=== PATIENT | female | born 1970 | race Caucasian/White ===

== ENCOUNTER 2023-12-01 11:15 | Outpatient (RCR) | payer OTHER, SELFPAY ==
--- NOTE | 2023-10-23 16:32 | OPREHPOC ---
Outpatient Therapy Plan of Care This is a Multidisciplinary Plan of Care that may contain components documented by all disciplines (PT, OT, and ST.) PT Problem 1 PT Problem #1 Knowledge Deficit PT Goal 1 Goal [place] with HEP PT Goal 2 Goal Demonstrate terminal stance of L knee for terminal stance of gait Target Visit 10 PT Problem 2 PT Problem #2 Impaired Range of Motion PT Goal 1 Goal Improve left knee flexion to 125 degrees + Target Visit 10 PT Goal 2 Goal Patent will report no pain greater than 1/10 with sit to laundry machine tender last 2 weeks Target Visit 10 PT Problem 3 PT Problem #3 Impaired Gait PT Goal 1 Goal Patient will ambulate with even stride length bilaterally Target Visit 10 PT Goal 2 Goal Demonstrate ability to perform 10# floor lift without increased knee pain Target Visit 10
--- NOTE | 2023-10-23 16:32 | PTOPEVAL1 ---
Assessment and note entered by Stephen Woods, PT Evaluation Information Assessment Status Evaluation Diagnosis Acute pain in right knee, Medial meniscus tear, Osteoarthritis of Right knee Onset August 2022 Subjective Information Reports that she has had severe knee pain for about a year at this point. She reports that she has had injections and therapy in the past when she lived in [place]. States that she responded well to Aquatic therapy. She has a lot of trouble with deep squatting at this time. Reported Pain Level Pain Score 3: Self Report Assessment PT Clinical Summary Patient presents with loss in left knee functional motion, gait deviation, and hip weakness. She has had positive response to aquatic therapy in the past and we will move to emphasize continued knee mobility and strength moving forward for improved gait cycle and ADL performance. Plan of Care Interventions Aquatic Therapy,Electrical Stimulation,Gait Training,Hot Pack/Cold Pack,Manual Therapy,Neuro Re-education,Therapeutic Activities,Therapeutic Exercise PT Services Indicated Yes Treatment Frequency and 2x/week for 10 visits Duration These treatments will address the objective and functional deficits as defined above. The patient will be advanced safely and appropriately in order for the patient to progress towards his/her prior level of function. Additional exercises will be introduced and as well as a comprehensive home exercise program upon discharge, if needed, ?to ensure carryover of functional gains achieved in the clinic. This treatment plan has been reviewed and agreement upon by the patient.
--- NOTE | 2023-11-29 11:30 | PCPTNOTE ---
Pt canceled 11am appt at 11am and gave no reason.
--- NOTE | 2024-01-01 10:33 | PCPTNOTE ---
pt did not show for today's reevaluation appt, called and left voice message.
--- NOTE | 2024-01-19 09:07 | PCPTNOTE ---
This treatment is being continued on visit number [id number]. Please see documentation on both accounts to view progress. Completed interventions, outcomes, and problems have been marked as Inactive to facilitate the copying of the Care plan routine for recurring accounts.
== END 2024-01-18 10:41 | disposition home or self-care (01) ==
LOC: ANHPT 11:15
PROVIDERS: PCP Family Medicine Sports Medicine; Visit Provider Family Medicine Sports Medicine
DX: M25.561 Pain in right knee (principal); S83.241D Other tear of medial meniscus, current injury, right knee, subsequent encounter; M87.9 Osteonecrosis, unspecified; M17.11 Unilateral primary osteoarthritis, right knee
CPT/HCPCS: 97110; 97113; 97140; 97161; 97530

== ENCOUNTER 2024-01-29 13:36 | Outpatient (RCR) | payer OTHER, SELFPAY ==
--- NOTE | 2024-01-19 09:06 | PCPTNOTE ---
This treatment is being continued from visit number [id number] Please see documentation on both accounts to view progress. Completed interventions, outcomes, and problems have been marked as Inactive to facilitate the copying of the Care plan routine for recurring accounts.
--- NOTE | 2024-01-29 14:22 | OPREHPOC ---
Outpatient Therapy Plan of Care This is a Multidisciplinary Plan of Care that may contain components documented by all disciplines (PT, OT, and ST.) PT Problem 1 PT Problem #1 Knowledge Deficit PT Goal 1 Goal / Goal Update [place] with HEP 01-29-24 progress met goal continue to progress education Target Visit 15 PT Goal 2 Goal / Goal Update Demonstrate terminal stance of L knee for terminal stance of gait 01-29-24 progress met goal- discontinue intervention Target Visit 10 PT Problem 2 PT Problem #2 Impaired Range of Motion PT Goal 1 Goal / Goal Update Improve left knee flexion to 125 degrees + 01-29-24 progress met goal- discontinue goal Target Visit 10 PT Goal 2 Goal / Goal Update Patent will report no pain greater than 1/10 with sit to shale miner last 2 weeks 01-29-24 progress goal not met NEW GOAL: 1* pain rating at worst of 3/10 Target Visit 15 PT Problem 3 PT Problem #3 Impaired Gait PT Goal 1 Goal / Goal Update Patient will ambulate with even stride length bilaterally 01-29-24 progress met goal- discontinue Target Visit 10 PT Goal 2 Goal / Goal Update Demonstrate ability to perform 10# floor lift without increased knee pain 01-29-24 progress partially met goal- able to lift 10# with pain
--- NOTE | 2024-01-29 14:22 | PTOPPROG ---
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 She was out of town for 3 weeks, moving. She did not show for 1 and call/canceled 1 appointment. LE functional scale rating of 60% limitation in activity level. Most pain with sitting to/from standing. Compared to the initial evaluation: pain from 1-9 /10 to 1-5/10; increased strength of R LE, reported increase in activity and walking tolerance to 40-60 minutes; improved gait pattern with equal stride and weight bearing; stairs with single step pattern and 1 hand railing. Active ROM of knee in sitting (-5') to 130'. Education for HEP and pain control. The goals were partially met. Continue PT treatment. Plan of Care Interventions Electrical Stimulation,Manual Therapy,Neuro Re- education,Patient Education,Therapeutic Activities,Therapeutic Exercise,Ultrasound,Other Other Interventions taping PT Services Indicated Yes Treatment Frequency and 1-2x/wk for 6 visits Duration These treatments will address the objective and functional deficits as defined above. The patient will be advanced safely and appropriately in order for the patient to progress towards his/her prior level of function. Additional exercises will be introduced and as well as a comprehensive home exercise program upon discharge, if needed, ?to ensure carryover of functional gains achieved in the clinic. This treatment plan has been reviewed and agreement upon by the patient.
--- NOTE | 2024-03-06 15:10 | PTOPDC ---
Assessment and note entered by Layla Quiñones, PT Discharge Report Assessment Status Discharge - Pt Not Present Diagnosis Acute pain in right knee, Medial meniscus tear, Osteoarthritis of Right knee Onset August 2022 Subjective Information pt was not seen this date Assessment PT Clinical Summary Fatou received 9 PT sessions, from October 22 to Jan 28. She has not returned since the reevaluation report on Jan 28. Discharge PT services. Refer to the reevaluation report for her status at d/c. The goals were not addressed. Plan of Care PT Services Indicated No
== END 2024-03-07 09:36 | disposition home or self-care (01) ==
LOC: ANHPT 13:36
PROVIDERS: PCP Family Medicine Sports Medicine; Visit Provider Family Medicine Sports Medicine
DX: M25.561 Pain in right knee (principal); S83.241D Other tear of medial meniscus, current injury, right knee, subsequent encounter; M87.9 Osteonecrosis, unspecified; M17.11 Unilateral primary osteoarthritis, right knee
CPT/HCPCS: 97110; 97530

== ENCOUNTER 2024-10-04 13:24 | Emergency (ER) | payer SELFPAY ==
--- NOTE | ~2024-10-04 | XR_ITS ---
EXAMINATION: XR chest 2V DATE: 10/04/2024 14:36 INDICATION: Chest pain TECHNIQUE: PA and lateral views of the chest were obtained. COMPARISON: None FINDINGS: The lungs are clear with no focal airspace opacities, pulmonary edema, pleural effusion or pneumothor ax. The cardiomediastinal silhouette is normal. Mild to moderate thoracic spondylosis. IMPRESSION: 1. No acute cardiopulmonary disease. Reviewed, dictated and finalized at location A.
--- NOTE | 2024-10-04 13:26 | ECG_ITS ---
Test Date: 2024-10-04 13:46:26 Measurements Intervals [place] Rate: 73 P: 35 AR: 152 QRS: 40 QRSD: 92 T: 41 QT: 363 QTc: 400 Interpretive Statements SINUS RHYTHM NONSPECIFIC T-WAVE ABNORMALITY ABNORMAL ECG No previous ECG available for comparison Electronically Signed On 10-05-2024 07:59:03 CDT by Marcos Hernandez M.D.
--- OUTSIDE RECORDS SUMMARY | 2024-10-04 13:32 | XMS_ITS | Clinical Summary ---
Author Organization [facility] Building B Address [address] [place] [id number] Care Team Providers Care Supervisor Of Research Name Role Phone Magdalene Canales MD Primary Care Provider Allergies Active Allergy Reactions Criticality Noted Date Comments Prochlorperazine Other (See comments),Anxiety,Hives Medium 07/13/2016 tachycardia Anxiety Medications celecoxib (CeleBREX) 200 mg capsule Take 1 capsule (200 mg total) by mouth daily 06/30/19 24 Active fluticasone propionate (FLONASE) 50 mcg/actuation nasal spray Administer 1 spray into each nostril daily 10/02/19 19 Active lidocaine (LIDODERM) 5 % Place 1 patch on the skin daily 06/28/19 24 Active pramipexole (MIRAPEX) 0.75 mg tablet Take 1 tablet (0.75 mg total) by mouth 3 (three) times a day 09/22/19 24 Active venlafaxine XR (EFFEXOR-XR) 150 mg 24 hr capsule Take 1 capsule (150 mg total) by mouth daily 09/22/19 24 Active carBAMazepine XR (TEGretol XR) 200 mg 12 hr tablet Take 1 tablet (200 mg total) by mouth 2 (two) times a day 3 tablets 2 times daily Active acyclovir (ZOVIRAX) 200 mg capsule Take 1 capsule (200 mg total) by mouth 3 (three) times a day As needed Active ondansetron ODT (ZOFRAN-ODT) 4 mg disintegrating tablet Take 1 tablet (4 mg total) by mouth every 8 (eight) hours as needed Active famotidine (PEPCID) 10 mg tablet Take 1 tablet (10 mg total) by mouth 2 (two) times a day Active omeprazole (PriLOSEC) 20 mg capsule Take 1 capsule (20 mg total) by mouth 2 (two) times a day 28 capsule 12/01/19 24 Active clarithromycin (BIAXIN) 500 mg tablet Take 1 tablet (500 mg total) by mouth 2 (two) times a day 28 tablet 02/27/20 24 Active Additional Information Patient not taking.Reported on 09/03/2024 cetirizine (ZyrTEC) 10 mg tablet Take 1 tablet (10 mg total) by mouth daily 06/03/19 25 Active benzonatate (TESSALON) 100 mg capsuleIndications :Cough Take 1 capsule (100 mg total) by mouth 3 (three) times a day as needed for cough 21 capsule 07/03/19 25 Active Active Problems Problem Noted Date Diagnosed Date Colon cancer screening 03/04/2024 Assessment & Plan (09/08/2024 9:43 PM CDT): Colonoscopy from 01/2021 for chronic diarrhea showed one 6 mm hyperplastic rectal polyp, internal hemorrhoids, and significant looping, random colon biopsy showed mild acute active colitis that could be either infectious or related to bowel prep. Was recommended to repeat in 7 years due to previous hx of adenomas Assessment & Plan (03/04/2024 3:59 PM CDT): Colonoscopy from 01/2021 for chronic diarrhea showed one 6 mm hyperplastic rectal polyp, internal hemorrhoids, and significant looping, random colon biopsy showed mild acute active colitis that could be either infectious or related to bowel prep. Was recommended to repeat in 7 years due to previous hx of adenomas Helicobacter pylori infection 02/27/2024 Severe Obstructive sleep apnea 02/01/2024 History of Helicobacter pylori infection 024 Assessment & Plan (02/27/2024 9:48 AM CDT): Previous EGD from 2020 showed H pylori was treated with antibiotics but never penicillin due to childhood allergy. Follow up breath test last summer still positive and was referred for formal allergy testing that did not show any allergic reaction. Was prescribed triple therapy for H pylori, but went on trip after taking for only 4-5 days and did no bring medications with her. Currently on Augmentin for respiratory/sinus infection Plan Will re-order triple therapy for H pylori for 14 days Check for eradication a month after completion of therapy, will hold omeprazole for 2 weeks prior to testing Assessment & Plan (12/01/2023 10:32 AM CDT): Previous EGD from 2020 showed H pylori was treated with antibiotics but never penicillin due to childhood allergy. Follow up breath test last summer still positive and was referred for formal allergy testing that did not show any allergic reaction. Plan Will order triple therapy for H pylori for 14 days Check for eradication at follow up visit Constipation 12/01/2023 Assessment & Plan (03/04/2024 3:59 PM CDT): Alternating constipation and diarrhea now with more constipation issues Takes iron supplement 2-3 times a week Still having constipation, not currently on any over the counter medication, previously tried stool softener did not feel like it helped. Plan Patient to discuss with PCP about need for continued iron supplementation because it can worsen constipation. I don't have recent CBC or iron studies to review for her. Use a fiber supplement such as metamucil, take 1 teaspoon a day and increase to three times a day as tolerated if no significant bloating Eat a high fiber diet Your goal is 25-30 g of total daily fiber intake Can also use miralax 1 capful daily Increase daily hydration to maintain at least 64 oz of water intake Gentle massage of the abdomen Find a regular bowel routine that include: -Going to bathroom around same time every day, ideally after a meal -Keep your back straight, lean forward and rest your forearms on your knees. Keep knees higher than hips by using a stepstool to keep legs elevated and apart -Keep your mouth slightly open and breathe out. Do not hold your breath. Assessment & Plan (12/01/2023 10:27 AM CDT): Alternating constipation and diarrhea with predominantly constipation. stools are thin with incomplete evacuation Abdominal fullness and bloating Previously tried stool softener before and did not feel like that helped Not currently on any bowel regimen Colonoscopy from 01/2021 for chronic diarrhea showed one 6 mm hyperplastic rectal polyp, internal hemorrhoids, and significant looping, random colon biopsy showed mild acute active colitis that could be either infectious or related to bowel prep. Lab reviewed in Care everywhere from 05/2021 showed mildly elevated alk-phos 151 with normal CBC and CMP, TTG IgA, normal TSH 2017 Plan Discussed starting fiber supplement and daily miralax Counseled on healthy bowel habits and adequate hydration, handout provided to patient Abdominal bloating 12/01/2023 Assessment & Plan (12/01/2023 10:29 AM CDT): Lab reviewed in Care everywhere from 05/2021 that showed mildly elevated alk- phos 151 with normal CBC and CMP, TTG IgA, normal TSH 2017 EGD from 01/2021 showed LA grade a reflux esophagitis without metaplasia, chronic gastritis with H pylori, normal small bowel biopsy Colonoscopy from 01/2021 for chronic diarrhea showed one 6 mm hyperplastic rectal polyp, internal hemorrhoids, and significant looping, random colon biopsy showed mild acute active colitis that could be either infectious or related to bowel prep. Plan Likely related to chronic constipation and H pylori, will start bowel regimen with fiber and miralax and provide triple therapy for H pylori. Avoid NSAIDs, and minimie carbonation, artificial sweeteners. 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 pylori that was treated with 2 rounds of treatment. -Repeat H. pylori testing in 6 weeks. -Trial of decreasing omeprazole to 40 mg p.o. daily, holding entirely for 2 weeks leading up to H. pylori breath testing. -Continue antireflux dietary and lifestyle modifications. K21.9:Gastro-esophageal reflux disease without esophagitis - Notes:Diagnosed Assessment & Plan (12/01/2023 10:33 AM CDT): EGD from 01/2021 showed LA grade a reflux esophagitis without metaplasia, reflux well controlled with PRN famotidine and omeprazole with occasional breakthrough symptoms at night. Plan Discussed stopping omeprazole and just take famotidine as needed Follow antireflux lifestyle Seizure 03/08/2018 Overview (11/22/2023): G40.89:Other seizures (780.39, G40.89) - Notes:Changed Status to - Inactive Anxiety 01/10/2018 Epilepsy 01/10/2018 Restless legs syndrome 01/10/2018 Overview (11/22/2023): G25.81:Restless legs syndrome - Notes:Previously Diagnosed Encounters Date Type Department Care Team Description 09/03/2024 11:00 AM CDT Office Visit [facility] Gastroenterology at [address] [place] [address] Kenton Barnett MD Constipation, unspecified constipation type (Primary Dx); Abdominal bloating; Helicobacter pylori infection; Colon cancer screening from Last 3 Months Medical History Medical History Date Comments Seizures (HCC) Restless leg syndrome Sleep apnea Family History Medical History Relation Name Comments Gout Other Osteoporosis Other Relation Name Status Comments Other Social History Tobacco Use Types Packs/Day Years Used Date Smoking Tobacco: Former Cigarettes Tobacco Cessation:Counseling Given: Not Answered Comments:- AUDIT-C Answer Date Recorded Q1: How often do you have a drink containing alc ohol? Never 09/03/2024 Q2: How many drinks containi ng alcohol do you have on a typical day when you are drinking? 1 or 2 09/03/2024 Q3: How often do you have six or more drinks on one occasion? Never 09/03/2024 Comments Unknown Sex and Gender Information Value Date Recorded Sex Assigned at Not on file Legal Sex Female 9:57 AM CDT Gender Identity Female 09/12/2023 10:29 AM CDT Sexual Orientation Not on file Obstetrics History Last Filed Vital Signs Vital Sign Reading Time Taken Comments Blood Pressure 137/86 09/03/2024 11:39 AM CDT Pulse 84 09/03/2024 11:39 AM CDT Temperature 37.2 C (98.9 F) 07/03/2024 11:46 AM AIR QUALITY CONSULTANT Respiratory Rate 24 07/03/2024 11:4 6 AM AIR QUALITY CONSULTANT Oxygen Saturation 94% 09/03/2024 11: 39 AM CDT Inhaled Oxygen Concentration - - Weight 132.1 kg (291 lb 3.2 oz) 025 11:39 AM CDT Height 165.1 cm (5' 5 ) 09/03/2024 11:3 9 AM CDT Body Mass Index 48.46 09/03/2024 11:39 AM CDT Plan of Treatment Health Maintenance Due Date Last Done Comments Cervical Cancer Screening 1968 Colon Cancer Screening-Colonoscopy 1968 Depression Screening 1968 Hepatitis C Screening 1968 Regular Well Visit/Exam 18-64 1986 Breast Cancer Screening-Mammogram 06/08/2025 06/08/2024, 06/08/2024, 11/15/2021 DTaP/Tdap/Td Vaccine (6 - Td or Tdap) 11/26/2030 11/26/2020, 01/14/2020, 07/25/2017, Additional history exists Zoster Vaccine Completed 08/12/2019, 05/24/2019 Hepatitis B Screening Completed 06/11/2023 , 12/08/2022, 08/25/2022 Influenza Vaccine Completed 01/25/2024, , 04/20/2022, Additional history exists Pneumococcal vaccine <65 Aged Out No longer eligible based on patient's age to complete this topic Insurance [facility] Care Teams Supervisor Of Research Relationship Specialty Start Date End Date Magdalene Canales MD [address] [place] [address] PCP - General Internal Medicine 09/12/23
--- OUTSIDE RECORDS SUMMARY | 2024-10-04 13:32 | XMS_ITS | Referral Summary ---
Author Organization [facility] Medical Office Building B Address [address] [place] [id number] Care Team Providers Care Crop Farmers Name Role Phone Magdalene Canales MD Primary Care Provider [phone] Encounters Date Type Department Care Team Description 09/03/2024 11:00 AM CDT Office Visit [facility] Gastroenterology at [address] [place] [address] Kenton Barnett MD Constipation, unspecified constipation type (Primary Dx); Abdominal bloating; Helicobacter pylori infection; Colon cancer screening from Last 3 Months Allergies Active Allergy Reactions Criticality Noted Date [...] (11/22/2023): G25.81:Restless legs syndrome - Notes:Previously Diagnosed Social History Tobacco Use Types Packs/Day Years Used Date Smoking Tobacco: Former Cigarettes Tobacco Cessation:Counseling Given: Not Answered Comments:87- AUDIT-C Answer Date Recorded Q1: How often [...] AM CDT Sexual Orientation Not on file Last Filed Vital Signs Vital Sign Reading Time Taken Comments Blood Pressure 137/86 09/03/2024 11:39 AM CDT Pulse 84 09/03/2024 11:39 AM CDT Temperature 37.2 C (98.9 F) 07/03/2024 11:46 AM FREIGHT LOADER Respiratory Rate 24 07/03/2024 11:4 6 AM FREIGHT LOADER Oxygen Saturation 94% 09/03/2024 11: 39 AM CDT Inhaled Oxygen Concentration - - Weight 132.1 kg (291 lb 3.2 oz) 025 11:39 AM CDT Height 165.1 cm (5' 5 ) 09/03/2024 11:3 9 AM CDT Body Mass Index 48.46 09/03/2024 11:39 AM CDT Plan of Treatment Not on file Insurance [facility] Care Teams Crop Farmers Relationship Specialty Start Date End Date Magdalene Canales MD [address] [place] [id number] PCP - General Internal Medicine 09/12/23
--- OUTSIDE RECORDS SUMMARY | 2024-10-04 13:32 | XMS_ITS | Patient Health Record ---
Author Organization [facility] Billing Info Address [address] [place], [place] [id number] Care Team Providers Care Handkerchief Presser Name Role Phone CONOR SHAW, BRIAN Primary Care Provider Unava ilable Allergies Allergen (clinical drug ingredient) Drug/Non Drug Allergy documented on EMR Reaction Allergy Type Onset Date Status Penicillin Unknown Drug Allergy Active Compazine Unknown Drug Allergy Active Reason For Referral No Information Medications Medication SIG (Take, Route, Frequency, Duration) Notes Start Date End Date Status Famotidine 20 MG 1 tablet before bed Orally Once a day for 30 day(s) 07/14/2022 Active Carbamazepine 200 MG TK 3 TS PO BID MUST BE TARO BRAND Oral for 30 Active Valacyclovir HCl 500 MG TK 1 T PO QD PRN Oral for 30 Active Nuvigil 150 MG TK TO 1 T PO D PRF SLEEPINESS START WITH QAM UPON AWAKENING AND IN AFTERNOON IF NEEDED Oral for 30 Not-Taking Pramipexole Dihydrochloride 0.25 MG TK 1 T PO QD HS Oral for 90 Active Omeprazole 40 MG Take 1 capsule (=40 mg) by mouth 2 times a day before meals. for 30 Active Citalopram Hydrobromide 20 MG TK 1 T PO QD Oral for 30 Not-Taking Gabapentin 300 MG TK ONE C PO QHS FOR 1 WEEK THEN 1 C BID FOR 1 WEEK THEN 1 C TID Oral for 31 Not-Taking Immunizations Vaccine Route Administration Date Status Comme nts FLU (Past vaccine of unknown type) 0 03/22/2014 P ending FLU (Past vaccine of unknown type) Unknown 04/03/2019 A dministered Social History Tobacco Use: Social History Observation Description Date Details (start date - stop date) Former Smoker NA - NA Tobacco Status: Question Answer Notes Patient is a former smoker Problems Problem Type SNOMED Code ICD Code Onset Dates Problem Status W/U Status Risk Notes Problem 167478191 Sore throat (J02.9) Active confirmed Problem [id number] GERD without esophagitis (K21.9) Active confirmed Problem 38886213 Sensorineural hearing loss (SNHL) of right ear with restricted hearing of left ear (H90.A21) Active confirmed Plan Of Treatment No Information Insurance Providers Payer Name Payer Address Payer Phone Subscriber Number Group Number Insured Name Patient Relationship to Insured Coverage Start Date Coverage End Date [place] [address] [place], [place] [id number] Fatou Gonsales Self - patient is the insured 8 3 Medical (General) History Medical History History ICD Code Seizures Back problems Herpes Surgical History Surgery Date(Month/Year)
--- OUTSIDE RECORDS SUMMARY | 2024-10-04 13:32 | XMS_ITS | Data Portability ---
Author Organization [facility] Address [address] [place] [address] Care Team Providers Care Journeyman Operator Assistant Name Role Phone MAGDALENE LAGUNA Primary Care Provider [phone] Assessment No assessment recorded. Plan of Treatment Reminders Order Date Submit Date Provider Last Modified By Organization Details Last Modified Time Details Appointments ANY 30 2024 10:00A M TAZ MAYEN Not available Not available Not available Lab influenza virus A + B + SARS-CoV- 2 (COVID19) Ag panel, rapid IA, upper respirato ry specimen 2024 025 [facility] In-Office Order, Internal Use Only DO Not Attach Compendium DO Not Attach Compendium, Do Not Delete/merge, [id number] 07/10/2024 17:33:20 rapid strep group A, throat 2024 025 [facility] In-Office Order, Internal Use Only DO Not Attach Compendium DO Not Attach Compendium, Do Not Delete/merge, [id number] 07/10/2024 17:34:18 fecal occult blood, immunoass ay, stool 2023 024 [email or web address], [address] [place] [address], [address], 07/16/2024 12:25:58 Referral None recorded. Procedures None recorded. Surgeries None recorded. Imaging MAMMO, screening , digital, bilateral 2023 024 [facility] Scheduling, 2 [facility] [place], [address], 06/24/2024 18:19:29 US, doppler, venous - to rule out dvt 2023 024 EF[facility] ([facility]) Scheduling, 2 [facility], [place], [address], 04/09/2024 06:40:13 Medication Orders lidocaine 5 % topical patch 2024 025 [facility] #[id number], [address], [place], [place], [id number], 07/11/2024 13:50:01 amoxicill in 875 mg tablet 2024 [facility] #86278, [address], [place], [place], [id number], 08/16/2024 11:44:03 cetirizin e 10 mg tablet 2024 [facility], [address], [place], [place], [id number], 06/04/2024 15:37:39 fluticaso ne propionat e 50 mcg/actua tion nasal spray,[facility] pension 2024 [facility], [address], [place], [place], [id number], 06/04/2024 15:37:39 famotidin e 20 mg tablet 2024 025 [facility], [address], [place], [place], [id number], 06/04/2024 15:37:39 acyclovir 200 mg capsule 2024 025 [facility] #38386, [address], [place], [place], [id number], 06/04/2024 15:37:39 fluticaso ne propionat e 50 mcg/actua tion nasal spray,jose pension 2023 [facility] #81165, [address], [place], [place], [id number], 05/02/2024 12:28:31 cetirizin e 10 mg tablet 2023 024 [facility] #16409, [address], [place], [place], [id number], 05/02/2024 12:28:31 famotidin e 20 mg tablet 2023 [facility], [address] [place] [address], [address], 01/25/2024 12:45:24 Patient TargetsNo targets recorded. Patient Instructions Encounter Date Encounter Id Patient Instructions Last Modified By Organization Details Last Modified Time 01/25/2024 [id number] f/u in 3 month nsuthan Not available 01/25/2024 12:46:15 05/02/2024 [id number] stool kit /f/u i n 1 month nsuthan Not available 05/03/2024 14:03:21 06/04/2024 [id number] f/u in 3 month nsuthan Not available 06/04/2024 12:07:34 07/08/2024 [id number] Plan of care has been discussed with patient including expected therapeutic benefits and potential side effects of prescribed medication and treatments. Patient verbalizes understanding and is in agreement with the plan of care. Patient was instructed to keep all scheduled appointments and contact the clinic for any additional problems. [email or web address] Not available 07/08/2024 16:22:17 Reason for Referral None Reported. Results Created Date Observation Date Name Description Value Unit Range Abnormal Flag Note LastModifiedBy Organization Detail LastModifiedTime 02/12/20 24 02/12/2024 SARS- CoV+S ARS-C oV-2 (COVI D-19) Ag [Pres ence] in Respi rator y syste m speci men by Rapid immun oassa y influenza A Ag, POC Negati ve text: negati ve Influ suman A Ag, POC Negat carl Negat carl [facility] CC EDW Not Available Not Available 07/04/2024 12:38:57 02/12/20 24 02/12/2024 SARS- CoV+S ARS-C oV-2 (COVI D-19) Ag [Pres ence] in Respi rator y syste m speci men by Rapid immun oassa y influenza B Ag, POC Negati ve text: negati ve Influ suman B Ag, POC Negat carl Negat carl [facility] CC EDW Not Available Not Available 07/04/2024 12:38:57 02/12/20 24 02/12/2024 SARS- CoV+S ARS-C oV-2 (COVI D-19) Ag [Pres ence] in Respi rator y syste m speci men by Rapid immun oassa y covid-19 Ag POC Presum ptive Negati ve text: presum ptive negati ve, invali d COVID -19 Ag POC Presu mptiv e Negat carl Presu mptiv e Negat carl, Inval id [facility] CC EDW Not Available Not Available 07/04/2024 12:38:57 02/12/20 24 02/12/2024 SARS- CoV+S ARS-C oV-2 (COVI D-19) Ag [Pres ence] in Respi rator y syste m speci men by Rapid immun oassa y interpretati on and review of laboratory results Normal Not Available Not Available 06/22 12:38:57 06/25/19 25 06/25/2024 pap test, thinp rep, cervi perla Pap neg Not Available Not Availa ble 08/16/2024 12:08:20 07/03/19 25 07/03/2024 SARS- CoV+S ARS-C oV-2 (COVI D-19) Ag [Pres ence] in Respi rator y syste m speci men by Rapid immun oassa y influenza A Ag, POC Negati ve text: negati ve Influ suman A Ag, POC Negat carl Negat carl [facility] CC EDW Not Available Not Available 07/04/2024 12:39:10 07/03/19 25 07/03/2024 SARS- CoV+S ARS-C oV-2 (COVI D-19) Ag [Pres ence] in Respi rator y syste m speci men by Rapid immun oassa y influenza B Ag, POC Negati ve text: negati ve Influ suman B Ag, POC Negat carl Negat carl [facility] CC EDW Not Available Not Available 07/04/2024 12:39:10 07/03/19 25 07/03/2024 SARS- CoV+S ARS-C oV-2 (COVI D-19) Ag [Pres ence] in Respi rator y syste m speci men by Rapid immun oassa y covid-19 Ag POC Presum ptive Negati ve text: presum ptive negati ve, invali d COVID -19 Ag POC Presu mptiv e Negat carl Presu mptiv e Negat carl, Inval id [facility] CC EDW Not Available Not Available 07/04/2024 12:39:10 07/03/19 25 07/03/2024 SARS- CoV+S ARS-C oV-2 (COVI D-19) Ag [Pres ence] in Respi rator y syste m speci men by Rapid immun oassa y interpretati on and review of laboratory results Normal Not Available Not Available 06/22 12:39:10 07/10/19 25 07/10/2024 rapid strep group A, throa t Strep negati ve Not Available In-Office Order Internal Use Only DO Not Attach Compendium DO Not Attach Compendium, Do Not Delete/merge, [id number] 07/08/2024 16:21:51 04/09/20 24 04/03/2024 US, doppl er, venou s No observ ation record ed. [facility] (Radiology) [address] [place], [address], 04/17/2024 11:28:02 06/24/19 25 06/08/2024 MAMMO , scree mckayla, digit al, bilat eral No observ ation record ed. [facility] [address] [place], [address], 06/25/2024 09:46:19 Result Notes None recorded. Problems Name Problem SNOMED Code Status Onset Date Resolution Date Notes Provider Name and Address Organization Details Recorded Time Mixed anxiety and depressive disorder 611087617 Active 2023 Magdalene Laguna MD Attn: Alan bennett,[address] [place], [address], [place] - [facility] 4 10:46:02 Seizure disorder 947327147 Active 2023 Magdalene Laguna MD Attn: Alan bennett,[address] [place], [address], [place] [facility] 4 10:46:02 Restless legs 27281537 Active 2023 Magdalene Laguna MD Attn: Alan bennett,[address] [place], [address], [place] [facility] 4 10:53:48 Genital herpes simplex 28855859 Active 2023 Magdalene Laguna MD Attn: Alan bennett,[address] [place], [address], [place] [facility] 4 10:55:45 History of Helicobacte r pylori infection 6822969736366 9108 Active 2023 Magdalene Laguna MD Attn: Alan bennett,[address] [place], [address], [place] [facility] 4 11:04:31 Obstructive sleep apnea syndrome 70275370 Active 2023 -on cpap Magdalene Laguna MD Attn: Alan bennett,[address] [place], [address], [place] - [facility] 4 12:25:58 Pain of right knee joint 0007113564802 00 Active 2023 Magdalene Laguna MD Attn: Alan bennett[address], [place], [address], [place] [facility] 4 11:06:03 Hyperlipide ashley 23330413 Active 2023 Magdalene Laguna MD Attn: Alan bennett,[address], [place], [address], [place] [facility] 4 09:46:00 Hypoalbumin emia 669427703 Active 2023 Magdalene Laguna MD Attn: Alan g,[address], [place], [address], [place] [facility] 4 09:46:09 Prediabetes 049280868 Active 2023 Magdalene Laguna MD Attn: Alan bennett,[address] [facility], [place], [address], [place] [facility] 4 09:49:06 Notes:colonoscopy 2020 Problem Notes None recorded. Procedures Surgical History None recorded. Imaging Results Imaging Date Name Status LastModified by Organiz ation Details LastModified Time 04/03/2024 US, doppler, venous completed [facility] (Radiology) [address] [place] [address], [address], 04/17/2024 11:28:02 06/08/2024 MAMMO, screening, digital, bilateral completed [address], [address], 06/25/2024 09:46:19 Procedure Notes None recorded. Medical Equipment None Reported. Allergies Allergen ID Allergen Name Allergen Category Reaction Reaction Severity Criticality Documentation Date Start Date Code Code System Note Provider Name and Address Organization Details Recorded Time Compazine medicatio n palpitati ons Not available Not available 09/11/202378188 6 RxNorm MARGIE Simons, [place] - [facility] 4 10:10:59 Medications Name Sig Start Date Stop Date Status Note LastModified by Organization Details LastModified Time celecoxib 200 mg capsule Take 1 capsule every day by oral route. 09/05 /2024 completed for right knee Not Available Not Available Not Available amoxicill in 500 mg capsule 01/24 completed Not Available Not Available Not Available cetirizin e 10 mg tablet TAKE 1 TABLET BY MOUTH EVERY DAY active Not Available Not Available No t Available clarithro mycin 500 mg tablet 05/02 completed Not Available Not Available Not Available meloxicam 15 mg tablet TAKE 1 TABLET BY MOUTH ONCE DAILY WITH FOOD NEEDED active Not Available Not Available No t Available venlafaxi ne ER 150 mg capsule,e xtended release 24 hr TAKE 1 CAPSULE BY MOUTH EVERY DAY active Not Available Not Available No t Available acyclovir 400 mg tablet po 1 tab tid for 5 days 07/08 completed Not Available Not Available Not Available omeprazol e 40 mg capsule,d elayed release Take 1 capsule twice a day by oral route as needed. 05/03 completed Not Available Not Available Not Available carbamaze pine 200 mg tablet TAKE 3 TABLETS BY MOUTH TWICE DAILY active Not Available Not Available No t Available amoxicill in 875 mg tablet TAKE 1 TABLET BY MOUTH EVERY 12 HOURS FOR 7 DAYS 08/16 completed Not Available Not Available Not Available famotidin e 20 mg tablet TAKE 1 TABLET BY MOUTH EVERY DAY AT BEDTIME active Not Available Not Available No t Available benzonata te 100 mg capsule TAKE 1 CAPSULE BY MOUTH THREE TIMES DAILY NEEDED FOR COUGH 08/16 completed Not Available Not Available Not Available acyclovir 5 % topical ointment APPLY TOPICALL Y TO AFFECTED AREA(S) EVERY 3 HOURS (6 TIMES PER DAY) active Not Available Not Available No t Available lidocaine 5 % topical patch APPLY 1 PATCH TOPICALL Y TO THE SKIN DAILY. MAY WEAR UP TO 12 HOURS active Not Available Not Available No t Available omeprazol e 20 mg capsule,d elayed release TAKE 1 CAPSULE BY MOUTH EVERY DAY NEEDED active Not Available Not Available No t Available acyclovir 200 mg capsule TAKE 2 CAPSULES BY MOUTH THREE TIMES DAILY FOR 5 DAYS NEEDED active Not Available Not Available No t Available methylpre dnisolone 4 mg tablets in a dose pack FOLLOW PACKAGE DIRECTIO NS 08/16 completed Not Available Not Available Not Available ondansetr on 4 mg disintegr ating tablet Place 1 tablet twice a day by translin gual route as needed. active PRN Not Available Not Available No t Available fluticaso ne propionat e 50 mcg/actua tion nasal spray,jose pension SHAKE LIQUID AND USE 1 SPRAY IN EACH NOSTRIL EVERY DAY active Not Available Not Available No t Available amoxicill in 875 mg-potass ium clavulana te 125 mg tablet TAKE 1 TABLET BY MOUTH TWICE DAILY FOR 10 DAYS 05/02 completed Not Available Not Available Not Available pramipexo le 0.75 mg tablet TAKE 1 TABLET BY MOUTH EVERY DAY AT BEDTIME 2024 active Not Available Not Available Not Avai lable venlafaxi ne ER 150 mg tablet,ex tended release 24 hr Take 1 tablet every day by oral route. 01/24 completed Not Available Not Available Not Available lidocaine 0.5 %-me.sali cyl 20 %-capsai 0.035 %-menth 5 % topical patch 08/07 completed PRN Not Available Not Available Not Available Mounjaro 2.5 mg/0.5 mL subcutane ous pen injector Inject 0.5 mL every week by subcutan eous route. 01/24 completed insuranc e denied Not Available Not Available Not Available Vitals Date Recorded Body height Body mass index (BMI) Body weight Heart rate Respiratory rate Body temperature Oxygen saturation Oxygen saturation in Arterial blood by Pulse oximetry Systolic blood pressure Diastolic blood pressure Provider Name and Address Organization Details Last Updated DateTime 4 165.1 cm 47.4 kg/m2 757821. 18 g 73 /min 14 /min 97.2 [degF] 98 % 98 % 114 mm[Hg] 72 mm[Hg] Jammie Nguyen [place] - [facility] 4 12:19:00 Date Recorded Body height Body mass index (BMI) Body weight Heart rate Respiratory rate Body temperature Oxygen saturation Oxygen saturation in Arterial blood by Pulse oximetry Systolic blood pressure Diastolic blood pressure Systolic blood pressure Diastolic blood pressure Provider Name and Address Organization Details Last Updated DateTime 4 165.1 cm 49 kg/m2 896845. 59 g 85 /min 14 /min 97.2 [degF] 99 % 99 % 150 mm[Hg] 84 mm[Hg] 156 mm[Hg] 82 mm[Hg] Jammie Nguyen MA [facility] 4 12:42:31 Date Recorded Body height Body mass index (BMI) Body weight Heart rate Respiratory rate Body temperature Oxygen saturation Oxygen saturation in Arterial blood by Pulse oximetry Systolic blood pressure Diastolic blood pressure Provider Name and Address Organization Details Last Updated DateTime 5 165.1 cm 49 kg/m2 865622. 67 g 76 /min 14 /min 97.3 [degF] 96 % 96 % 127 mm[Hg] 82 mm[Hg] Jammie Nguyen MA [facility] 5 11:45:32 Date Recorded Body height Body mass index (BMI) Body weight Oxygen saturation Oxygen saturation in Arterial blood by Pulse oximetry Heart rate Respiratory rate Body temperature Systolic blood pressure Diastolic blood pressure Provider Name and Address Organization Details Last Updated DateTime 5 165.1 cm 47.3 kg/m2 842810. 67 g 95 % 95 % 84 /min 20 /min 97.3 [degF] 117 mm[Hg] 80 mm[Hg] Jammielizzy Nguyen MARGIE [facility] 5 16:08:03 Date Recorded Body height Body mass index (BMI) Body weight Oxygen saturation Oxygen saturation in Arterial blood by Pulse oximetry Heart rate Body temperature Systolic blood pressure Diastolic blood pressure Systolic blood pressure Diastolic blood pressure Provider Name and Address Organization Details Last Updated DateTime 5 165.1 cm 48.3 kg/m2 789397. 84 g 94 % 94 % 88 /min 98.4 [degF] 155 mm[Hg] 88 mm[Hg] 144 mm[Hg] 88 mm[Hg] Oma Centeno MA [facility] 5 11:54:52 Social History Question Answer Notes LastModified by Organizat ion Details LastModified Time Tobacco Smoking Status [facility] 09/11/2023 10:25:05 Are You Blind Or Do You Have Difficulty Seeing? Yes Glasses & Contacts Information not available 09/11/2023 What Is Your Level Of Caffeine Consumption? Moderate Information not available 09/11/2023 In The 14 Days Before Symptom Onset, Have You Had Close Contact With A Laboratory-confir med COVID-19 While That Case Was Ill? No Information not available 09/11/2023 In The 14 Days Before Symptom Onset, Have You Had Close Contact With A Person Who Is Under Investigation For COVID-19 While That Person Was Ill? No Information not available 09/11/2023 Have You Been To An Area Known To Be High Risk For COVID-19? No Information not available 09/11/2023 Are You Deaf Or Do You Have Serious Difficulty Hearing? No Information not available 09/11/2023 What Type Of Diet Are You Following? REGULAR Information not available 09/11/2023 What Is The Highest Grade Or Level Of School You Have Completed Or The Highest Degree You Have Received? [id number] Information not available 09/11/2023 Are There Any Guns Present In Your Home? No Information not available 09/11/2023 What Was The Date Of Your Most Recent Tobacco Screening? 07/08/2024 Information not available 07/08/2024 What Is Your Relationship Status? Single Information not available 09/11/2023 Do You Use Your Seat Belt Or Car Seat Routinely? Yes Information not available 09/11/2023 Do You Have Smoke And Carbon Monoxide Detectors In Your Home? Yes Information not available 09/11/2023 At What Age Did You Start Smoking Tobacco? 16 Information not available 09/11/2023 How Much Tobacco Do You Smoke? 0.5 PPD Information not available 09/11/2023 Do You Use Sunscreen Routinely? No Information not available 09/11/2023 Has Tobacco Cessation Counseling Been Provided? No Information not available 09/11/2023 Sex: Unknown Functional Status Question Answer Note LastModified by Organizat ion Details LastModified Time Do you use any illicit or recreational drugs? No Information not available 09/11/2023 Do you or have you ever used any other forms of tobacco or nicotine? No Information not available 09/11/2023 What is your level of alcohol consumption? Occasional Information not available 09/11/2023 Are you currently employed? Yes Information not available 05/02/2024 Are you able to care for yourself? 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 None Information not available 09/11/2023 Mental Status Question Answer Note LastModified by Organizat ion Details LastModified Time Do you feel stressed (tense, restless, nervous, or anxious, or unable to sleep at night)? [id number] better w/meds Information not available 06/04/2024 Family History Relationship Description Onset Age of this Age Resolved Age Notes LastModified by Organization Details LastModified Time Mother Malignant tumor of breast Not available 2023 10:19:28 Mother Chronic obstructive pulmonary disease Not available 2023 10:19:38 Mother Congestive heart failure Not available 2023 10:19:58 Unspecified Relation Family history of malignant neoplasm mother & father side Not available 09/11/2023 10:20:40 Unspecified Relation Diabetes mellitus father 's side Not available 09/11/2023 10:21:33 Medical History Condition Response Coronary Artery Disease N Other N Atrial Fibrillation N High Blood Pressure N Depression Y COPD N Blood Clots N Anxiety Disorder Y Muscle, Joint, or Bone Problems Y Acid Reflux (GERD) Y Cancer N Stroke N High Cholesterol N Liver Disease N Headaches Y Kidney or Bladder Problems Y Thyroid Problems N GI Problems Y Skin Problems Y Anemia Y Heart Attack (ND) N Diabetes N Seizures/Epilepsy Y Asthma N Allergies Y Hepatitis N Heart Failure N Osteoporosis Y Gynecological History Statement/Question Response If Post Menopausal, Age at Menopause 40 Date of Last Pap Smear Age at Menarche 10 Obstetrics History GPAL:G 0 P 0 0 0 0 Immunizations Vaccine Type Date Status Note Provider Nam e and Address Organization Details Recorded Time Influenza, split virus, trivalent, PF 01/25/2024 completed Magdalene Laguna MD Attn: [address] [place], [address], [facility] 01/26/2024 09:23:47 Past Encounters Encounter ID Performer Location Encounter Start Date Encounter Closed Date Diagnosis/Indication Diagnosis SNOMED-CT Code Diagnosis ICD10 Code Diagnosis Note [id number] MD Torie Aguilera (Adult Med) [address] [place] [address] 09/11/2023 09:46:14 09/18/2023 16:02:10 Adult health examination 164963435 Z00.00 -check labshealth y diet and exercise discussed with pt Obesity 693697650 E66.9 Mixed anxi ety and depressive disorder 000664421 F41.8 stable - pt is on venlafaxin e Seizure disorder 3650356 02 G40.909 -pt is on carbamazep ine and pt was evaluated by neuro-pt had childhood seizures -pt is seizure free since 2008 Pain of ri ght knee joint 8097287686 20432 M25.561 with h/o meniscal injury and arthritis- pt had several MRI Restless legs 71883141 G 25.81 -stable on pramipexol e Obstructiv e sleep apnea syndrome 23063860 G47.33 -pt did not get cpap since she moved here History of Helicobacter pylori infection 7192260240 7889113 Z86.19 -pt wants to see GI Renewal of prescription 691061228 Z76.0 Multiple skin tags 78018 7009 L91.8 -pt wants to see derm [id number] MD Torie Aguilera (Adult Med) [address] [place] [address] 11/24/2023 09:40:52 11/27/2023 15:24:10 Morbid obesity 133593470 E66.01 with pre-dM and naman and hyperlipid emia- pt is a good candidate for glp1 Metabolic syndrome X 237 271417 E88.810 with multiple comorbidit ies Renewal of prescription 659088877 Z76.0 [id number] MD Torie Aguilera (Adult Med) [address] [place] [address] 01/25/2024 11:59:54 01/30/2024 13:09:56 Mixed anxiety and depressive disorder 703878712 F41.8 stable - pt is on venlafaxin e Seizure disorder 4349052 02 G40.909 stable on carbamazep ine Pain of ri ght knee joint 5836865474 46220 M25.561 with h/o meniscal injury and arthritis- pt had several MRI Heartburn 78717280 R12 - pt is on famotidine Administra tion of influenza vaccine 04074573 Z23 Edema of l ower extremity 945751267 R60.0 with long travel and also hypoalbumi nemia -urine prot-neg- check us to r/o dvt [id number] MD Torie Aguilera (Adult Med) [address] [facility] [address] [place] [address] 05/02/2024 11:52:55 05/06/2024 12:46:14 Mixed anxiety and depressive disorder 500154703 F41.8 stable - pt is on venlafaxin e Obstructiv e sleep apnea syndrome 71198151 G47.33 -pt is on cpap Elevated blood-pressure reading without diagnosis of hypertension 038531195 R03.0 pt denied any h/o HTN in the past and her previous bp are normal- pt to follow low salt diet-will re-assess in a monthpt to monitor bp at home as well - pt to call with numbers in 2 wks Seizure disorder 0861458 02 G40.909 stable on carbamazep ine Screening mammography 24 400604 Z12.31 Screening for malignant neoplasm of colon 228333684 Z12.11 Allergic rhinitis 642616 04 J30.9 [id number] [facility] [address] [place] [address] 06/04/2024 11:33:19 06/10/2024 10:59:25 Elevated blood-pressure reading without diagnosis of hypertension 655145335 R03.0 pt denied any h/o HTN in the past and her previous bp are normal- pt to follow low salt diet-bp is normal todaypt to monitor bp at home as well Mixed anxi ety and depressive disorder 466652929 F41.8 stable - pt is on venlafaxin e Renewal of prescription 810729464 Z76.0 Heartburn 21778818 R12 - pt is on famotidine Allergic rhinitis 547051 04 J30.9 [id number] MD Torie Aquino (Adult Med) [address] [place] [address] 07/08/2024 15:26:30 08/05/2024 09:22:56 Low back pain 416161181 M54.50 -Denies any loss of control of bowels or bladder. Denies any numbness or tingling.- patient declined x-rays at this time-Reord ering lidocaine patches for the patient for pain control-ER precaution s advised Acute otitis media 23974 03 H66.91 -patient presentati on consistent with acute otitis media. -Patient agreeable to treatment with amoxicilli n b.i.d. for 7 days. CARCASS SPLITTER advised patient to consume OTC probiotic or yogurt while on antibiotic therapy.-p atient to follow up in clinic if symptoms worsen or do not improve ER precaution s advised Cough 05144237 R05.9 Negative for influenza, COVID, and strep [id number] MD Sumi WATTShalto ([facility]) [address] [place] [address] 08/16/2024 11:26:17 08/19/2024 11:10:41 Screening for malignant neoplasm of cervix [id number] Z12.4 - Reports up-to-date Elevated blood-pressure reading without diagnosis of hypertension [id number] R03.0 - Intermitte ntly normal BP, currently in stage II hypertensi on range- Recommende d low-salt diet- F/u with PCP for further evaluation and determinat ion whether this is persistent and requires treatment Health Concerns Section Related Observation LastModified by Organiz [id number]|2024-10-04 15:36:53|2024-10-04 15:36:53|ED.[email or web address]||||"HPI - General Adult General Chief complaint: Chest Pain <Chiara Mars APRN - Last Filed: 10/04/24 15:42> Stated complaint: Chest pain 11/28, no cardiac <Chiara Mars APRN - Last Filed: 10/04/24 15:42> Time Seen by Provider: 10/04/24 15:36 <Chiara Mars APRN - Last Filed: 10/04/24 15:42> Focused HPI: Fatou Gonsales is a 54 y/o female who presents today with complaints of Chest pain pressure to the middle of her chest that started at around 1220 while at rest and then the pain started to radiate under her right breast and then the pain started to get much worse to a 7/10 She called 911 EMS gave her ASA and she states she is still having pain at a 4/10 pressure to mid chest down under right breast She takes carbamazepine for seizures, hx of restless leg, and Effexor for depression Denies any cardiac hx GENERAL: Well-appearing, well-nourished, and in no acute distress. HEAD: Normocephalic, atraumatic. CHEST: Clear to auscultation. No respiratory distress. HEART: Regular rate and rhythm. NEURO: Alert and oriented x3. Patient screened in triage and initial orders placed. Additional care and disposition to be based upon diagnostic testing and treatment. <Chiara Cast September, MAINTENANCE COORDINATOR - Last Filed: 10/04/24 15:42> History of Present Illness HPI narrative: Agree with MSE. Pt had chest pressure starting at 1230 and still present. better now. <Melissa Max Jose III, DO - Last Filed: 10/04/24 18:36> Related Data Allergies/adverse reactions: Allergies Allergy/AdvReac Type Severity Reaction Status Date / Time prochlorperazine (From Allergy Intermediate Palpitation Verified 10/04/24 15:51 Compazine) s <Chiara Cast September, MAINTENANCE COORDINATOR - Last Filed: 10/04/24 15:42> Review of Systems Review of Systems: All systems reviewed & are unremarkable except as noted in HPI and below <Melissa Max Jose III, DO - Last Filed: 10/04/24 18:36> Exam Const: General: healthy appearing and no acute distress <Melissa Max Jose III, DO - Last Filed: 10/04/24 18:36> Nutritional Appearance: well nourished <Melissa Max Jose III, DO - Last Filed: 10/04/24 18:36> Orientation/consciousness: patient oriented x3 <Melissa Max Jose III, DO - Last Filed: 10/04/24 18:36> Limitations: no limitations <Melissa Max Jose III, DO - Last Filed: 10/04/24 18:36> Neck: Neck: normal visual inspection <Melissa Max Jose III, DO - Last Filed: 10/04/24 18:36> Chest: Chest palpation & inspection: tenderness (with palpation anterior right chest) <Melissa Max Jose III, DO - Last Filed: 10/04/24 18:36> Resp: Effort & Inspection: normal respiratory effort <Melissa Max Jose III, DO - Last Filed: 10/04/24 18:36> Auscultation: clear to auscultation bilaterally <Melissa Max Jose III, DO - Last Filed: 10/04/24 18:36> Cardio: Rate: regular rate <Melissa Max Jose III, DO - Last Filed: 10/04/24 18:36> Rhythm: regular rhythm <Melissa Max Jose III, DO - Last Filed: 10/04/24 18:36> GI: GI Palp: Yes Soft to palpation and No Tenderness to palpation present (GI) <Melissa Max Jose III, DO - Last Filed: 10/04/24 18:36> Auscultation: normal bowel sounds <Melissa Max Jose III, DO - Last Filed: 10/04/24 18:36> Skin: General skin exam: normal color <Melissa Max Jose III, DO - Last Filed: 10/04/24 18:36> Rashes: no rashes <Melissa Max Jose III, DO - Last Filed: 10/04/24 18:36> Wounds: no wounds <Melissa Max Jose III, DO - Last Filed: 10/04/24 18:36> Neuro: General: patient oriented x3, moves all extremities and no focal motor deficits <Melissa Max Jose III, DO - Last Filed: 10/04/24 18:36> Speech: normal speech <Melissa Max Jose III, DO - Last Filed: 10/04/24 18:36> Extrem: General: normal to inspection and no clubbing, cyanosis or edema <Melissa Max Jose III, DO - Last Filed: 10/04/24 18:36> Psych: Mental Status: mental status grossly normal <Melissa Max Jose III, DO - Last Filed: 10/04/24 18:36> Affect: normal affect <Melissa Max Jose III, DO - Last Filed: 10/04/24 18:36> Attitude: cooperative <Melissa Santana Jose III, DO - Last Filed: 10/04/24 18:36> Course Vital Signs Vital signs: Vital Signs Temperature 97.6 F 10/04/24 14:25 Pulse Rate 68 10/04/24 14:25 Respiratory Rate 16 10/04/24 14:25 Blood Pressure 142/78 H 10/04/24 14:25 Pulse Oximetry 96 10/04/24 14:25 Oxygen Delivery Room Air 10/04/24 14:25 Temperature 97.6 F 10/04/24 14:25 Pulse Rate 66 10/04/24 18:13 Respiratory Rate 20 10/04/24 18:13 Blood Pressure 144/76 H 10/04/24 18:13 Pulse Oximetry 95 10/04/24 18:13 Oxygen Delivery Room Air 10/04/24 16:18 <Chiara Mars, MAINTENANCE COORDINATOR - Last Filed: 10/04/24 15:42> Vital Signs Temperature 97.6 F 10/04/24 14:25 Pulse Rate 68 10/04/24 14:25 Respiratory Rate 16 10/04/24 14:25 Blood Pressure 142/78 H 10/04/24 14:25 Pulse Oximetry 96 10/04/24 14:25 Oxygen Delivery Room Air 10/04/24 14:25 Temperature 97.6 F 10/04/24 14:25 Pulse Rate 66 10/04/24 18:13 Respiratory Rate 20 10/04/24 18:13 Blood Pressure 144/76 H 10/04/24 18:13 Pulse Oximetry 95 10/04/24 18:13 Oxygen Delivery Room Air 10/04/24 16:18 <Melissa Santana Jose III, DO - Last Filed: 10/04/24 18:36> Medical Decision Making MDM Narrative Medical decision making narrative: Pt has chest pressure for several hours non stop. pain reproducible with palpation. ekg and first trop and cxr unremarkable. will get second trop if ok should be able to discharge. <Melissa Santana Jose III, DO - Last Filed: 10/04/24 18:36> Vital Signs Vital Signs: Vital Signs Temperature 97.6 F 10/04/24 14:25 Pulse Rate 68 10/04/24 14:25 Respiratory Rate 16 10/04/24 14:25 Blood Pressure 142/78 H 10/04/24 14:25 Pulse Oximetry 96 10/04/24 14:25 Oxygen Delivery Room Air 10/04/24 14:25 Temperature 97.6 F 10/04/24 14:25 Pulse Rate 66 10/04/24 18:13 Respiratory Rate 20 10/04/24 18:13 Blood Pressure 144/76 H 10/04/24 18:13 Pulse Oximetry 95 10/04/24 18:13 Oxygen Delivery Room Air 10/04/24 16:18 <Chiara Mars, MAINTENANCE COORDINATOR - Last Filed: 10/04/24 15:42> Vital Signs Temperature 97.6 F 10/04/24 14:25 Pulse Rate 68 10/04/24 14:25 Respiratory Rate 16 10/04/24 14:25 Blood Pressure 142/78 H 10/04/24 14:25 Pulse Oximetry 96 10/04/24 14:25 Oxygen Delivery Room Air 10/04/24 14:25 Temperature 97.6 F 10/04/24 14:25 Pulse Rate 66 10/04/24 18:13 Respiratory Rate 20 10/04/24 18:13 Blood Pressure 144/76 H 10/04/24 18:13 Pulse Oximetry 95 10/04/24 18:13 Oxygen Delivery Room Air 10/04/24 16:18 <Melissa Jose III, DO - Last Filed: 10/04/24 18:36> Lab Data Result diagrams: 10/04/24 15:56 10/04/24 15:56 <Chiara Mars, MAINTENANCE COORDINATOR - Last Filed: 10/04/24 15:42> Labs: Lab Results 10/04/24 10/04/24 Range/Units 15:56 17:58 WBC 11.4 H (4.5-10.0) K/mm3 RBC 4.27 (4.2-5.4) M/mm3 Hgb 11.6 L (12.0-15.0) g/dL Hct 37.0 (37.0-47.0) % MCV 86.7 (80-100) fl MCH 27.2 (26-34) pg MCHC 31.4 L (32-36) g/dl RDW 14.7 H (11.5-14.5) % Plt Count 284 (150-375) k/mm3 MPV 10.2 (7.4-10.4) fl Immature Gran % (Auto) 0.7 H (0-0.5) % Neut % (Auto) 65.4 (45.5-73.1) % Lymph % (Auto) 24.9 (18.3-44.2) % [place] % (Auto) 7.6 (2.6-8.5) % Eos % (Auto) 1.0 (0-4.4) % Baso % (Auto) 0.4 (0.2-1.2) % Lymph # (Auto) 2.84 (0.9-3.2) K/mm3 [place] # (Auto) 0.9 H (0.1-0.6) K/mm3 Eos # (Auto) 0.1 (0-0.3) K/mm3 Baso # (Auto) 0.0 (0.0-0.1) K/mm3 Abs Immat Gran (auto) 0.08 H (0.00-0.031) K/mm3 Absolute Neuts (auto) 7.5 H (1.3-6.7) K/mm3 Absolute Nucleated RBC 0.000 (0.0-0.012) K/mm3 Nucleated RBC % 0.0 (0.0-0.2) % PT 13.5 (11.1-14.7) Seconds INR 1.0 APTT 27.6 (22.3-36.8) Seconds Sodium 140 (137-145) mmol/L Potassium 4.5 (3.4-5.0) mmol/L Chloride 104 (98-107) mmol/L Carbon Dioxide 26 (22-30) mmol/L Anion Gap 10 (4-12) mmol/L BUN 19 H (7-17) mg/dL Creatinine 0.59 L (0.7-1.0) mg/dL Estim Creat Clear Calc 124 ml/min Estimated GFR > 60 (59 - ) Glucose 94 (65-110) mg/dL Calcium 9.1 (8.4-10.2) mg/dL Total Bilirubin 0.2 (0.2-1.3) mg/dL AST 34 (14-36) U/L ALT 23 (6-35) U/L Alkaline Phosphatase 149 H (38-126) U/L Troponin I < 0.012 < 0.012 (0.000-0.034) ng/mL Total Protein 8.0 (6.3-8.2) g/dL Albumin 3.9 (3.5-5.1) g/dL Lipase 108 (23-300) U/L <Chiara Mars, MAINTENANCE COORDINATOR - Last Filed: 10/04/24 15:42> Lab Results 10/04/24 10/04/24 Range/Units 15:56 17:58 WBC 11.4 H (4.5-10.0) K/mm3 RBC 4.27 (4.2-5.4) M/mm3 Hgb 11.6 L (12.0-15.0) g/dL Hct 37.0 (37.0-47.0) % MCV 86.7 (80-100) fl MCH 27.2 (26-34) pg MCHC 31.4 L (32-36) g/dl RDW 14.7 H (11.5-14.5) % Plt Count 284 (150-375) k/mm3 MPV 10.2 (7.4-10.4) fl Immature Gran % (Auto) 0.7 H (0-0.5) % Neut % (Auto) 65.4 (45.5-73.1) % Lymph % (Auto) 24.9 (18.3-44.2) % [place] % (Auto) 7.6 (2.6-8.5) % Eos % (Auto) 1.0 (0-4.4) % Baso % (Auto) 0.4 (0.2-1.2) % Lymph # (Auto) 2.84 (0.9-3.2) K/mm3 [place] # (Auto) 0.9 H (0.1-0.6) K/mm3 Eos # (Auto) 0.1 (0-0.3) K/mm3 Baso # (Auto) 0.0 (0.0-0.1) K/mm3 Abs Immat Gran (auto) 0.08 H (0.00-0.031) K/mm3 Absolute Neuts (auto) 7.5 H (1.3-6.7) K/mm3 Absolute Nucleated RBC 0.000 (0.0-0.012) K/mm3 Nucleated RBC % 0.0 (0.0-0.2) % PT 13.5 (11.1-14.7) Seconds INR 1.0 APTT 27.6 (22.3-36.8) Seconds Sodium 140 (137-145) mmol/L Potassium 4.5 (3.4-5.0) mmol/L Chloride 104 (98-107) mmol/L Carbon Dioxide 26 (22-30) mmol/L Anion Gap 10 (4-12) mmol/L BUN 19 H (7-17) mg/dL Creatinine 0.59 L (0.7-1.0) mg/dL Estim Creat Clear Calc 124 ml/min Estimated GFR > 60 (59 - ) Glucose 94 (65-110) mg/dL Calcium 9.1 (8.4-10.2) mg/dL Total Bilirubin 0.2 (0.2-1.3) mg/dL AST 34 (14-36) U/L ALT 23 (6-35) U/L Alkaline Phosphatase 149 H (38-126) U/L Troponin I < 0.012 < 0.012 (0.000-0.034) ng/mL Total Protein 8.0 (6.3-8.2) g/dL Albumin 3.9 (3.5-5.1) g/dL Lipase 108 (23-300) U/L <Melissa Jose III, DO - Last Filed: 10/04/24 18:36> Discharge Plan Discharge Clinical Impression: Atypical chest pain <Chiara Mars APRN - Last Filed: 10/04/24 15:42> Patient Disposition: Home <Chiara Mars APRN - Last Filed: 10/04/24 15:42> Condition: Stable <Chiara Mars APRN - Last Filed: 10/04/24 15:42> Instructions: Antibiotic Form, Chest Wall Pain (ED) <Chiara Mars APRN - Last Filed: 10/04/24 15:42> Patient Language: Yakut <Chiara Mars APRN - Last Filed: 10/04/24 15:42> Prescriptions: New naproxen [Naprosyn] 500 mg tablet 500 mg PO BID Qty: 20 0RF <Chiara Mars APRN - Last Filed: 10/04/24 15:42> Follow-up/Referrals: Ayana,Chrystal Constantino MD [Non-Staff] - <Chiara Mars, MAINTENANCE COORDINATOR - Last Filed: 10/04/24 15:42> Quality HEART score for chest pain patients History: slightly suspicious <Melissa Max Jose III, DO - Last Filed: 10/04/24 18:36> ECG: normal <Melissa Max Jose III, DO - Last Filed: 10/04/24 18:36> Age: > 45 and < 65 years <Melissa Max Jose III, DO - Last Filed: 10/04/24 18:36> Risk factors: 1 or 2 risk factors <Melissa Max Jose III, DO - Last Filed: 10/04/24 18:36> Troponin: < or = to 1x normal limit <Melissa Max Jose III, DO - Last Filed: 10/04/24 18:36> Heart score: 2 <Melissa Max Jose III, DO - Last Filed: 10/04/24 18:36>"
--- OUTSIDE RECORDS SUMMARY | 2024-10-04 13:32 | XMS_ITS | Continuity of Care Document ---
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 Name Role Phone Nguyen SHAW, Jasmin Unavailable Unavailable Allergies, Adverse Reactions, Alerts Substance Reaction Status Criticality acetaminophen Vicodin-N/V Active No Information HYDROCODONE BITARTRATE Vicodin-N/V Active No In formation PROCHLORPERAZINE EDISYLATE Compazine Active N o Information PROCHLORPERAZINE MALEATE Active No Information Penicillins Active No Information Medications Medication Instructions Dosage Effective Dates (start - stop) Status Comments clonidine 0.1 mg tablet take 1 tab po qhs prn hot flashes/night sweats - Active Ativan 0.5 mg tablet take 1 tab po up to once daily prn severe anxiety - Active Tegretol XR 200 mg 12 hr Tab take 1 tablet (200MG) by ORAL route every 12 hours 200 MG - Active Valtrex 500 mg tablet take 1 tablet by oral route BID for 5 days - No Longer Active further refills must be done by suzan SHAW in [place] Procedures Procedure Date OFFICE/OUTPATIENT VISIT, EST Medical Form Completion Zero Charge OFFICE/OUTPATIENT VISIT, EST VISUAL ACUITY SCREEN PURE TONE HEARING TEST, AIR, SCREEN ROUTINE VENIPUNCTURE ASSAY OF IRON VITAMIN B-12 COMPLETE CBC W/AUTO DIFF WBC ASSAY OF FERRITIN GLYCOSYLATED HEMOGLOBIN TEST ASSAY THYROID STIM HORMONE LIPID PANEL ASSAY OF BLOOD LIPOPROTEIN COMPREHEN METABOLIC PANEL WELL EXAM, EST, AGE 40-64 OFFICE/OUTPATIENT VISIT, EST Zero Charge OFFICE/OUTPATIENT VISIT, EST Medical Form Completion OFFICE/OUTPATIENT VISIT, EST OFFICE/OUTPATIENT VISIT, EST OFFICE/OUTPATIENT VISIT, EST OFFICE/OUTPATIENT VISIT, EST VISUAL ACUITY SCREEN PURE TONE HEARING TEST, AIR, SCREEN TDAP VACCINE 7 IM WELL EXAM, EST, AGE 40-64 IMMUNIZATION ADMIN ROUTINE VENIPUNCTURE URINALYSIS, AUTO, W/O SCOPE OFFICE/OUTPATIENT VISIT, EST VISUAL ACUITY SCREEN PURE TONE HEARING TEST, AIR, SCREEN WELL EXAM, EST, AGE 40-64 ROUTINE VENIPUNCTURE OFFICE/OUTPATIENT VISIT, EST WELL EXAM, EST, AGE 40-64 ROUTINE VENIPUNCTURE OFFICE/OUTPATIENT VISIT, EST FLU VACCINE, 3 YRS Older IM IMMUNIZATION ADMIN OFFICE/OUTPATIENT VISIT, EST OFFICE/OUTPATIENT VISIT, EST OFFICE/OUTPATIENT VISIT, EST OFFICE/OUTPATIENT VISIT, EST OFFICE/OUTPATIENT VISIT, EST OFFICE/OUTPATIENT VISIT, EST OFFICE/OUTPATIENT VISIT, EST OFFICE/OUTPATIENT VISIT, EST OFFICE/OUTPATIENT VISIT, EST Advance Directives Directive Yes / No Effective Date File Name No Information Encounters Encounter Description Practice Location Reason(s) For Visit Diagnoses Date Provider Providers Copied on Encounter [facility], [address], [place], [place], [id number] , tel:[phone] [facility] No Information 4 Nguyen Castellanos. [address], [place] [address], [place], [place], [address], [place]. tel:[phone] [facility], [address], [place], [place], [address] , [place] tel:[phone] [facility] Periodic Limb Movement DisorderRespir atory Insufficiency 4 Nguyen Castellanos. [address], [address] [address], [place], [place], [address], [place]. tel:[phone] OFFICE/OUTPA TIENT VISIT, EST [facility], [address], [place], [place], [address] , [place] tel:[phone] [facility] Anxiety f/u (chief complaint) Fatigue / MalaiseAdjustm ent disorder with mixed anxiety and depressed moodSeizure / ConvulsionsIro n Metabolism Disorders Other 4 Nguyen Castellanos. [address], [place] [address], [place], [place], [address], [place]. tel:[phone] Jasmin johnson.Referri ng Provider: Jasmin johnson, [address] [place] [address], [place], [address] . tel:[phone] OFFICE/OUTPA TIENT VISIT, EST [facility], [address], [place], [place], [address] , [place] tel:[phone] [facility] Chills (chief complaint) Adjustment disorder with mixed anxiety and depressed mood 4 Nguyen Castellanos. [address], [place] [address], [place], [place], [address], [place]. tel:[phone] Referring Provider: Jasmin johnson, [address] [place] [address], [place], [address] . tel:[phone] [facility], [address], [place], [place], [address] , [place] tel:[phone] [facility] Fatigue / Malaise 4 Nguyen Castellanos. [address], [address] [address], [place], [place], [address], [place]. tel:[phone] WELL EXAM, EST, AGE 40-64 [facility], [address], [place], [place], [address] , [place] [phone] [facility] preventive exam (chief complaint) Other examination of ears and hearingRoutine Medical ExamAdjustment disorder with mixed anxiety and depressed moodSeizure / ConvulsionsMen opausal or female climacteric statesFatigue / Malaise 4 Nguyen Castellanos. [address], [place] [address], [place], [place], [address], [place]. tel:[phone] Jasmin johnson.Referri sybil Provider: Jasmin johnson, [address] [place] [address], [place], [address] . tel:[phone] OFFICE/OUTPA TIENT VISIT, EST [facility], [address], [place], [place], [address] , [place] tel:[phone] [facility] depression (chief complaint) Fatigue / MalaiseMenopau natalie or female climacteric states 4 Nguyen Castellanos. [address] [place] [address], [place], [place], [address], [place]. tel:[phone] Jasmin johnson.Referri ng Provider: Jasmin johnson, [address] [place] [address], [place], [address] . tel:[phone] OFFICE/OUTPA TIENT VISIT, EST [facility], [address], [place], [place], [address] , [place] tel:[phone] [facility] Depression (chief complaint) Adjustment disorder with mixed anxiety and depressed moodOther specified menopausal and postmenopausal disorders 4 Nguyen Castellanos. [address], [place], [place], [address], [place]. tel:[phone] Jasmin johnson. [facility], [address], [place], [place], [address] , [place] tel:[phone] [facility] No Information Aug- 3 Nguyen Castellanos. [address], [place], [place], [address], [place]. tel:[phone] OFFICE/OUTPA TIENT VISIT, EST [facility], [address], [place], [place], [address] , [place] tel:[phone] [facility] sore under tongue (chief complaint) Cysts of oral soft tissues 3 Nguyen Castellanos. [address], [place], [place], [address], [place]. tel:[phone] Jasmin johnson. OFFICE/OUTPA TIENT VISIT, EST [facility], [address], [place], [place], [address] , [place] tel:[phone] [facility] adjustment disorder with mixed anxiety and depression (chief complaint) Adjustment disorder with mixed anxiety and depressed moodOther specified menopausal and postmenopausal disorders 3 Nguyen Castellanos. [address], [place], [place], [address], [place]. tel:[phone] Jasmin johnson. OFFICE/OUTPA TIENT VISIT, EST [facility], [address], [place], [place], [address] , [place] tel:[phone] [facility] sleep disturbances (chief complaint)hot flashes (chief complaint)exc essive pm sweating (chief complaint) Adjustment disorder with mixed anxiety and depressed moodInsomnia, Other Jul- 3 Nguyen Castellanos. [address], [place], [place], [address], [place]. tel:[phone] OFFICE/OUTPA TIENT VISIT, EST [facility], [address], [place], [place], [address] , [place] tel:[phone] [facility] depression (chief complaint) Adjustment disorder with mixed anxiety and depressed mood 3 Nguyen Castellanos. [address], [address] [address], [place], [place], [address], [place]. tel:[phone] WELL EXAM, EST, AGE 40-64 [facility], [address], [place], [place], [address] , [place] tel:[phone] [facility] preventive exam (chief complaint) Routine Medical ExamSeizure / ConvulsionsMaj or depressive affective disorder, single episode, severe degree, without mention of psychotic behaviorPanic disorder without agoraphobiaNee d for prophylactic vaccination with combined diphtheria-tet anus-pertussis (DTP) (DTaP) vaccineRoutine Medical Exam 3 Nguyen Castellanos. [address], [address] [address], [place], [place], [address], [place]. tel:[phone] [facility], [address], [place], [place], [address] , [place] tel:[phone] [facility] Routine Medical Exam 3 Nguyen Castellanos. [address], [address] [address], [place], [place], [address], [place]. tel:[phone] OFFICE/OUTPA TIENT VISIT, EST [facility], [address], [place], [place], [address] , [place] tel:[phone] [facility] check mole (chief complaint)UTI (chief complaint) Other seborrheic keratosisUrina ry frequency 1 Stacy Lainez. [address], [address], [place], [address], . tel:[phone] Referring Provider: Jasmin johnson, [address] [place] [address], [place], [address] . tel:[phone] WELL EXAM, EST, AGE 40-64 [facility], [address], [place], [place], [address] , [place] tel:[phone] [facility] physical exam (chief complaint) Seizure / ConvulsionsRou mayo Medical ExamSeizure / ConvulsionsPan ic disorder without agoraphobiaRou mayo Medical Exam 1 Nguyen Castellanos. [address], [place], [place], [address], [place]. tel:[phone] [facility], [address], [place], [place], [address] , [place] tel:[phone] [facility] Routine Medical Exam 1 Nguyen Castellanos. [address], [place], [place], [address], [place]. tel:[phone] [facility], [address], [place], [place], [address] , [place] tel:[phone] [facility] No Information 0 Nguyen Castellanos. [address], [place], [place], [address], [place]. tel:[phone] OFFICE/OUTPA TIENT VISIT, EST [facility], [address], [place], [place], [address] , [place] tel:[phone] [facility] No Information 0 Nguyen Castellanos. [address], [place], [place], [address], [place]. tel:[phone] [facility], [address], [place], [place], [address] , [place] tel:[phone] [facility] Major depressive affective disorder, single episode, severe degree, without mention of psychotic behaviorPanic disorder without agoraphobiaNar cissistic personality disorderMajor depressive affective disorder, single episode, severe degree, without mention of psychotic behavior 9 Giayah Castellanos. [address], [facility] [address], [place], [place], [address], [place]. tel:[phone] WELL EXAM, EST, AGE 40-64 [facility], [address], [place], [place], [address] , [place] tel:[phone] [facility] No Information 5-200 9 Gianvittorio Jasmin. [address], [facility] [address], [place], [place], [address], [place]. tel:[phone] [facility], [address], [place], [place], [address] , [place] tel:[phone] [facility] No Information 2 9 Gianvittorio Jasmin. [address], [facility] [address], [place], [place], [address], [place]. tel:[phone] OFFICE/OUTPA TIENT VISIT, EST [facility], [address], [place], [place], [address] , [place] tel:[phone] [facility] No Information 9 Gianvittorio Jasmin. [address], [address] [address], [place], [place], [address], [place]. tel:[phone] OFFICE/OUTPA TIENT VISIT, EST [facility], [address], [place], [place], [address] , [place] tel:[phone] [facility] No Information 0 9 Gianvittorio Jasmin. [address], [facility] [address], [place], [place], [address], [place]. tel:[phone] OFFICE/OUTPA TIENT VISIT, EST [facility], [address], [place], [place], [address] , [place] tel:[phone] [facility] No Information 3 0-200 8 Gianvittorio Jasmin. [address], [facility] [address], [place], [place], [address], [place]. tel:[phone] OFFICE/OUTPA TIENT VISIT, EST [facility], [address], [place], [place], [address] , [place] tel:[phone] [facility] No Information 8 Nino Hendricks. [facility] [employer], [address], [id number], . tel:[phone] Referring Provider: Jorge A Faust, [address] [facility], [address] [facility], [place], [address]. tel:[phone] OFFICE/OUTPA TIENT VISIT, EST [facility], [address], [place], [place], [address] , [place] tel:[phone] [facility] No Information 8 Nino Hendricks. [facility], [address], [id number], [place]. tel:[phone] Referring Provider: Marguerite Morocho, [facility] [address] [facility], [address], [address]. tel:[phone] OFFICE/OUTPA TIENT VISIT, EST [facility], [address], [place], [place], [address] , [place] tel:[phone] [facility] No Information 8 Nino Hendricks. [facility], [address], [id number], [place]. tel:[phone] Referring Provider: Travis Faust, [address] [facility], [place], [address] . tel:[phone] OFFICE/OUTPA TIENT VISIT, EST [facility], [address], [place], [place], [address] , [place] tel:[phone] [facility] No Information 8 Nino Eladio. [facility] [employer], [address] [place] [address], [id number], [place]. tel:[phone] Referring Provider: Rowdy [address] [facility], [place], [address] . tel:[phone] OFFICE/OUTPA TIENT VISIT, EST [facility], [address], [place], [place], [address] , tel:[phone] [facility] No Information 8 Nino Hendricks. [facility], [address] [place] [address], [id number], . tel:[phone] Referring Provider: Travis Faust, [address] [facility], [place], [address] . tel:[phone] OFFICE/OUTPA TIENT VISIT, EST [facility], [address], [place], [place], [address] , tel:[phone] [facility] No Information 8 Nino Hendricks. [facility], [address] [place] [address], [id number], . tel:[phone] Referring Provider: Travis Faust, [facility] [address] [facility], [place], [address] . tel:[phone] OFFICE/OUTPA TIENT VISIT, EST [facility], [address], [place], [place], [address] , tel:[phone] [facility] No Information 8 Nino Hendricks. [address] [place] [address], [address], [id number], . tel:[phone] Referring Provider: Jorge A Faust, [facility], [address], [address]. tel:[phone] Family History Family Member Type Diagnosis Age At Onset Father Problem (finding) grandfather Problem (finding) grandfather Problem (finding) Leukemia (Cause Of Deat h) Paternal grandmother Problem (finding) Paternal grandmother Problem (finding) Diabetes mellitus (Cause Of ) Father Problem (finding) CHF (Cause Of ) grandfather Problem (finding) Paternal grandmother Problem (finding) Immunizations Vaccine Date Status Comments Tdap administered Source: New Imm unization Record Td (adult) administered Source: Source Unspecified Payers Payer name Insurance type Covered democrat ID Sofía muller(s) [facility] [id number] Social History Type Description Quantity Date Captured Comments Sex Female Smoking Status No Information Chief Complaint And Reason For Visit No Information Reason For Referral Reason For Referral No Information Plan Of Treatment Date Type Action Status Referral Ordered: cynthia (related to Fatigue / Malaise) ordered Referral Referred To: cynthia Ordered: Referral: cynthia. Consult. ordered Patient Education Depression Treatment: A fter Your Visit completed History Of Present Illness Encounter Date Complaint History Of Prese nt Illness Anxiety f/u (comments) note; much improvedfatigue much less - has been able to go to the gym and exerciseremains home from work until 09/02 as plannedsleep study pending for 08/28 - Dr Bahman vidal remains good - no depressionsome insomnia, chronic Anxiety f/u Pt here for 2 wk anxiety/fatigue f/u. Pt doing much better and is sleeping better and even went to the gym last week. Pt did not take the Ativan and feels fine Chills Onset: 12 hours ago. Additional information: Pt c/o ongoing chills throughout the night but pt states she is also sweating. Pt states it kept her awake all night. Chills (comments) Feeling cold x weeks - seems to be a little worse last night- now off Effexor x 5 days and mood is ok- has sleep study pendingno syncope, chest pain, dizziness, palpitationsmood worse - remains very tired and has not been working preventive exam (comments) She i s currently on short term leave from work due to falling asleep at workdespite reducing effexor she is still feeling the need to sleep all dayhas gained weight and not exercisedmood oktook a 37.5mg effexor last night - see notes- trying to wean off preventive exam Currently pregna nt: no. The patient states she uses condoms, male for control. Last LMP was 04/30/2013. Her menses is irregular with light flow with a frequency of >28 days. Menopausal symptoms negative for: insomnia and vaginal dryness. Menopausal symptoms positive for: hot flashes and night sweats. Associated symptoms include anxiety. Pertinent negatives include depression, difficulty falling sleep, nocturia, sleep disturbances, urinary incontinence, urinary urgency, vaginal discharge and vaginal itching. She takes calcium supplements. She reports taking Vitamin D. She does take multivitamins. Additional information: Pt had mammo May 2013 and Pt had PAP in Mar 2013 depression (comments) f/u fatigu eeffexor decr from 150mg to 75mg daily but fatigue remainsexercising when ablework remains busy- shift work- has been doing this x yrsnight sweats/hot flashes remain from menopausal sx depression Additional infor mation: Pt c/o extreme fatigue and thinks it may be from Effexor medication. Depression Additional infor danielitoion: Pt was rxed higher dosage of Effexor on 05/02/13; pt doing well w/ some mild fatigue. Depression (comments) Better moo d with inc Effexor at 150mg daily - less hot flashes and night sweats- but more fatiguework okeating more sugar and exercising a lot less nowunsure if dosage is too high due to fatigue Functional Status Date Functional Assessmen t No Information Instructions Date Instruction Additional Infor janette Depression education health maintenance report educat ion Assessments Type Assessment Date No Information Patient Care Teams Name Effective Dates (start - stop) Status Members No Information
--- OUTSIDE RECORDS SUMMARY | 2024-10-04 13:32 | XMS_ITS | Clinical Summary ---
Author Organization [facility] Address [address] [place] [address] Phone Care Team Providers Care Button Decorating Machine Operator Name Role Phone Magdalene Canales MD Primary Care Provider Medications No known medications Active Problems Problem Noted Date Diagnosed Date Recurrent major depressive episodes, mild 2023 Grief 11/22/2023 Encounters Date Type Department Care Team Description 07/27/2024 Travel from Last 3 Months Family History Medical History Relation Name Comments Congestive Heart Failure Father Cancer Mother Congestive Heart Failure Mother Relation Name Status Comments Brother Alive Father Mother Social History Tobacco Use Types Packs/Day Years Used Date Smoking Tobacco: Never Smokeless Tobacco: Never Tobacco Cessation:Counseling Given: Not Answered Alcohol Use Standard Drinks/Week Comments Yes 0 (1 standard drink = 0.6 oz pur e alcohol) Rarely PHQ-2 Answer Date Recorded Total Score - Questions 1-9 11 07/0 07/2023 Sexually Active Control Partners Comments Not Currently Comments Unknown Sex and Gender Information Value Date Recorded Sex Assigned at Not on file Legal Sex Female 11:47 PM CDT Gender Identity Not on file Sexual Orientation Not on file Plan of Treatment Health Maintenance Due Date Last Done Comments Hepatitis C Virus (HCV) Screening 1968 Pap Smear 1989 Cervical Cancer Screening (CCS) 1998 HPV/Cotest 1998 Cologuard 2018 Immunochemical Fecal Occult Blood 2018 Pneumococcal Immunization (50+ years) (1 of 1 - PCV) 2018 Influenza Immunization (#1) 2024 09/2 07/2022, 04/20/2022, 01/14/2020, Additional history exists SARS-COV-2 Immunization ( season) 2024 Mammogram 06/08/2025 06/08/2024 Colonoscopy 02/08/2031 02/08/2021 Colorectal Cancer Screening 02/08/2031 Respiratory Syncytial Virus (RSV) Immunization (Adult) (1 - 1-dose 75+ series) 08/07/2043 02/08/2021 Zoster Immunization Completed 08/12/2019, DTaP/Tdap/Td Immunization Discontinued 2020, 01/14/2020, 07/25/2017, Additional history exists TdaP Immunization Completed 11/26/2020, , 07/25/2017, Additional history exists Hepatitis B Immunization Completed 024, 12/08/2022, 08/25/2022 Meningococcal Immunization (ACWY) Aged Out No longer eligible based on patient's age to complete this topic Rotavirus Immunization Aged Out No lo nger eligible based on patient's age to complete this topic Goals Goal Patient Goal Type Associated Problems Recent Progress Patient-Stated? Author I do better when I talk it out, when I can talk about the things that are bothering me so they don't build up. Behavioral Health On track(2024 10:27 AM COLD WATER MACHINE OPERATOR) Yes Sarina Durham LCSW Note: Goal/Objective: Decrease depressive symptoms. Anticipated Time Frame for Goal Completion: 6 months Goal Reviewed with: patient Readiness to change: Ready to change Department associated with goal: [facility] Steps to achieve goal: will attend counseling/psychotherapy sessions at least once monthly, at least 6 sessions, utilizing individual and/or group sessions to express thoughts and feelings. to identify, verbalize and process at least three contributing factors/triggers to depression. to identify and verbalize at least three actions/skills to prevent and/or cope with depression. to put into action, at least one time weekly, for one month, an action/skill to prevent and or cope with depression. Grief Behavioral Health On track(2024 10:27 AM COLD WATER MACHINE OPERATOR) No Sarina Durham LCSW Note: Goal/Objective: Improve coping with grief and loss responses. Anticipated Time Frame for Goal Completion: 6 months Goal Reviewed with: patient Readiness to change: Ready to change Department associated with goal: [facility] Steps to achieve goal: 1. will attend at least 6 counseling sessions either individual and/or group 1x/mo, engaging in each session by verbalizing and processing thoughts and feelings related to grief and loss. 2. will report reduced feelings of guilt and resentment. 3. will identify and implement at least two outlets for grief and or coping skills to aid in managing problematic responses to grief. Procedures Procedure Name Priority Date/Time Associated Diagnosis Comments [facility] SCREENING BILATERAL DIGITAL W CAD W ARIES Routine 06/08/2024 12:00 PM COLD WATER MACHINE OPERATOR Encounter for screening mammogram for malignant neoplasm of breast from Last 3 Months or Most Recently Relevant to Health Maintenance Results * [facility] SCREENING BILATERAL DIGITAL W CAD W ARIES (06/08/2024 12:00 PM COLD WATER MACHINE OPERATOR) Anatomical Region Laterality Modality breast Bilateral Mammography 06/08/2024 12:2 9 PM COLD WATER MACHINE OPERATOR Narrative 06/24/2024 5:16 PM COLD WATER MACHINE OPERATOR - [facility] SCREENING BILATERAL DIGITAL W CAD W ARIES BILATERAL DIGITAL SCREENING MAMMOGRAM 3D/2D WITH CAD WITH MEDIOLATERAL OBLIQUE CRANIOCAUDAL: 06/08/2024 The study was acquired using digital technology and interpreted from soft copy. Current study was also evaluated with ICAD version 7.2. 2D digital mammographic views, as well as 3D digital tomosynthesis were performed in the CC and MLO projections. CLINICAL: Routine screening. Patient has no complaints. No personal history of cancer. Mother with postmenopausal breast cancer. Maternal cousin had premenopausal breast cancer. COMPARISONS: Additional films were requested but not obtained. BREAST TISSUE:The breasts are almost entirely fatty. FINDINGS: No significant masses, calcifications, or other findings are seen in either breast. IMPRESSION: NEGATIVE There is no mammographic evidence of malignancy. A 1 year screening mammogram is recommended. A letter will be sent to the patient with these results. The patient will be entered into a reminder system with a target due date of 1 year for her next screening exam. Electronically signed by: Micky herrmann/penrad:06/24/2024 11:58:19 Senior Telecommunications Technician(s): NAVEED Reyna)(M), [facility]: Normal Exam Reading location: [place] Mammogram BI-RADS: Category 1: Negative Procedure Note Micky Prabhakar MD - 06/24/2024 - [facility] SCREENING BILATERAL DIGITAL W CAD W ARIES BILATERAL DIGITAL SCREENING MAMMOGRAM 3D/2D WITH CAD WITH MEDIOLATERAL OBLIQUE CRANIOCAUDAL: 06/08/2024 The study was acquired using digital technology and interpreted from soft copy. Current study was also evaluated with ExoYouD version 7.2. 2D digital mammographic views, as well as 3D digital tomosynthesis were performed in the CC and MLO projections. CLINICAL: Routine screening. Patient has no complaints. No personal history of cancer. Mother with postmenopausal breast cancer. Maternal cousin had premenopausal breast cancer. COMPARISONS: Additional films were requested but not obtained. BREAST TISSUE:The breasts are almost entirely fatty. FINDINGS: No significant masses, calcifications, or other findings are seen in either breast. IMPRESSION: NEGATIVE There is no mammographic evidence of malignancy. A 1 year screening mammogram is recommended. A letter will be sent to the patient with these results. The patient will be entered into a reminder system with a target due date of 1 year for her next screening exam. Electronically signed by: Micky Prabhakar M.D. /penrad:06/24/2024 11:58:19 Senior Telecommunications Technician(s): NAVEED Reyna)(M), [facility] letter sent: Normal Exam Reading location: [place] Mammogram BI-RADS: Category 1: Negative Magdalene Canales MD IMG MAMMO ORDERABLES Final Re sult from Last 3 Months or Most Recently Relevant to Health Maintenance Insurance MEDICAID [place] Care Teams Button Decorating Machine Operator Relationship Specialty Start Date End Date Magdalene Canales MD [address] [place] [id number] PCP - General Internal Medicine 09/13/23
--- OUTSIDE RECORDS SUMMARY | 2024-10-04 13:32 | XMS_ITS | Continuity of Care Document ---
Author Organization [facility] [employer]. Address [address] [place] [address] Phone Care Team Providers Care Continuous Linter Drier Operator Name Role Phone Scoper Keenan SHAW Unavailable Unavailable Allergies, Adverse Reactions, Alerts Substance Reaction Status Criticality Penicillins Active No Information PROCHLORPERAZINE MALEATE Active No Information PROCHLORPERAZINE EDISYLATE Active N o Information Procedures Procedure Date Offic Cons New/estab Mod-hi 60 <content ID='ProcedureDescri ption_1' xmlns='[email or web address]'>Ophth Exten W/ret Draw W/i&r;</content> Fundus Photography W/i&r <content ID='ProcedureDescri ption_3' xmlns='urn:[email or web address]:[email or web address]'>Ophth Exten W/ret Draw W/i&r;</content> Advance Directives Directive Yes / No Effective Date File Name No Information Encounters Encounter Description Practice Location Reason(s) For Visit Diagnoses Date Provider Providers Copied on Encounter [facility] [address] [place] [address], [id number], [place] tel:[phone] Central No Information Scoper Keenan. [address] [place], [place], [id number], [place]. tel:[phone] Offic Cons New/estab Mod-hi 60 [facility] [address], [place], [id number], [place] tel:[phone] Central No Information Larry Casas. [address], [place], [id number], [place]. tel:[phone] Referring Provider: Rafy Pan OD, [address], [place], [address]. tel:[phone] Family History Family Member Type Diagnosis Age At Onset Mother Problem (finding) neuropathy Father Problem (finding) congestive heart failur e Grandfather (m) Problem (finding) malignant neoplasm o f lung Grandfather (m) Problem (finding) Parkinsons Grandmother (p) Problem (finding) Diabetes mellitus Payers Payer name Insurance type Covered green party ID Authoriza tion(s) No Information Social History Type Description Quantity Date Captured Comments Sex Female Smoking Status No Information Chief Complaint And Reason For Visit No Information Reason For Referral Reason For Referral No Information History Of Present Illness Encounter Date Complaint History Of Prese nt Illness No Information Functional Status Date Functional Assessmen t No Information Instructions Date Instruction Additional Infor mation Choroidal Nevus, 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 Will continue to monitor. Fundus Today OD - Nevus. - Discussed diagnosis in detail with patient. No treatment is required at present time. Will continue to monitor condition. Advised patient to continue following up with Dr. Pan in 1 year. Obtained Fundus photo today OD. 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 - Discussed diagnosis in detail with the patient. No treatment is required at this time. Will continue to observe condition and symptoms. Related to Cataract, Nuclear Sclerosis Assessments Type Assessment Date No Information Patient Care Teams Name Effective Dates (start - stop) Status Members No Information
[2024-10-04 14:25] VITALS: BP 142/78; PULSE 68; RESP 16; TEMP 36.4; O2SAT 96
--- NOTE | 2024-10-04 15:36 | ED_ITS ---
HPI - General Adult General Chief complaint: Chest Pain <Chiara Cast September, - Last Filed: 10/04/24 15:42> Stated complaint: Chest pain 7/10, no cardiac <Chiara Cast September, Last Filed: 10/04/24 15:42> Time Seen by Provider: 10/04/24 15:36 <Chiara Cast September, - Last Filed: 10/04/24 15:42> Focused HPI: Fatou Gonsales is a 54 y/o female who presents today with complaints of Chest pain pressure to the middle of her chest that started at around 1220 while at rest and then the pain started to radiate under her right breast and then the pain started to get much worse to a 7/10 She called 911 EMS gave her ASA and she states she is still having pain at a 4/10 pressure to mid chest down under right breast She takes carbamazepine for seizures, hx of restless leg, and Effexor for depression Denies any cardiac hx GENERAL: Well-appearing, well-nourished, and in no acute distress. HEAD: Normocephalic, atraumatic. CHEST: Clear to auscultation. No respiratory distress. HEART: Regular rate and rhythm. NEURO: Alert and oriented x3. Patient screened in triage and initial orders placed. Additional care and disposition to be based upon diagnostic testing and treatment. <Chiara Cast September, Last Filed: 10/04/24 15:42> History of Present Illness HPI narrative: Agree with MSE. Pt had chest pressure starting at 1230 and still present. better now. <Melissa Jose III, DO - Last Filed: 10/04/24 18:36> Related Data Allergies/adverse reactions: Allergies Allergy/AdvReac Type Severity Reaction Status Date / Time prochlorperazine (From Allergy Intermediate Palpitation Verified 10/04/24 15:51 Compazine) s <Chiara Cast September, Last Filed: 10/04/24 15:42> Review of Systems 2 Review of Systems: All systems reviewed & are unremarkable except as noted in HPI and below <Melissa Jose III, DO - Last Filed: 10/04/24 18:36> Exam 2 Const: General: healthy appearing and no acute distress <Melissa Max Jose III, DO - Last Filed: 10/04/24 18:36> Nutritional Appearance: well nourished <Melissa Max Jose III, DO - Last Filed: 10/04/24 18:36> Orientation/consciousness: patient oriented x3 <Melissa Max Jose III, DO - Last Filed: 10/04/24 18:36> Limitations: no limitations <Melissa Max Jose III, DO - Last Filed: 10/04/24 18:36> Neck: Neck: normal visual inspection <Melissa Max Jose III, DO - Last Filed: 10/04/24 18:36> Chest: Chest palpation & inspection: tenderness (with palpation anterior right chest) <Melissa Max Jose III, DO - Last Filed: 10/04/24 18:36> Resp: Effort & Inspection: normal respiratory effort <Melissa Max Jose III, DO - Last Filed: 10/04/24 18:36> Auscultation: clear to auscultation bilaterally <Melissa Max Jose III, DO - Last Filed: 10/04/24 18:36> Cardio: Rate: regular rate <Melissa Max Jose III, DO - Last Filed: 10/04/24 18:36> Rhythm: regular rhythm <Melissa Max Jose III, DO - Last Filed: 10/04/24 18:36> GI: GI Palp: Yes Soft to palpation and No Tenderness to palpation present (GI) <Melissa Max Jose III, DO - Last Filed: 10/04/24 18:36> Auscultation: normal bowel sounds <Melissa Max Jose III, DO - Last Filed: 10/04/24 18:36> Skin: General skin exam: normal color <Melissa Max Jose III, DO - Last Filed: 10/04/24 18:36> Rashes: no rashes <Melissa Max Jose III, DO - Last Filed: 10/04/24 18:36> Wounds: no wounds <Melissa Max Jose III, DO - Last Filed: 10/04/24 18:36> Neuro: General: patient oriented x3, moves all extremities and no focal motor deficits <Melissa Max Jose III, DO - Last Filed: 10/04/24 18:36> Speech: normal speech <Melissa Max Jose III, DO - Last Filed: 10/04/24 18:36> Extrem: General: normal to inspection and no clubbing, cyanosis or edema < Melissa Max Jose III, DO - Last Filed: 10/04/24 18:36> Psych: Mental Status: mental status grossly normal <Melissa Max Jose III, DO - Last Filed: 10/04/24 18:36> Affect: normal affect <Melissa Max Jose III, DO - Last Filed: 10/04/24 18:36> Attitude: cooperative <Melissa Max Jose III, DO - Last Filed: 10/04/24 18:36> Course Vital Signs Vital signs: Vital Signs Temperature 97.6 F 10/04/24 14:25 Pulse Rate 68 10/04/24 14:25 Respiratory Rate 16 10/04/24 14:25 Blood Pressure 142/78 H 10/04/24 14:25 Pulse Oximetry 96 10/04/24 14:25 Oxygen Delivery Room Air 10/04/24 14:25 Temperature 97.6 F 10/04/24 14:25 Pulse Rate 66 10/04/24 18:13 Respiratory Rate 20 10/04/24 18:13 Blood Pressure 144/76 H 10/04/24 18:13 Pulse Oximetry 95 10/04/24 18:13 Oxygen Delivery Room Air 10/04/24 16:18 <Chiara Mars, PARTY HOST/HOSTESS - Last Filed: 10/04/24 15:42> Vital Signs Temperature 97.6 F 10/04/24 14:25 Pulse Rate 68 10/04/24 14:25 Respiratory Rate 16 10/04/24 14:25 Blood Pressure 142/78 H 10/04/24 14:25 Pulse Oximetry 96 10/04/24 14:25 Oxygen Delivery Room Air 10/04/24 14:25 Temperature 97.6 F 10/04/24 14:25 Pulse Rate 66 10/04/24 18:13 Respiratory Rate 20 10/04/24 18:13 Blood Pressure 144/76 H 10/04/24 18:13 Pulse Oximetry 95 10/04/24 18:13 Oxygen Delivery Room Air 10/04/24 16:18 <Melissa Max Jose III, DO - Last Filed: 10/04/24 18:36> Medical Decision Making MDM Narrative Medical decision making narrative: Pt has chest pressure for several hours non stop. pain reproducible with palpation. ekg and first trop and cxr unremarkable. will get second trop if ok should be able to discharge. <Melissa Santana Jose III, DO - Last Filed: 10/04/24 18:36> Vital Signs Vital Signs: Vital Signs Temperature 97.6 F 10/04/24 14:25 Pulse Rate 68 10/04/24 14:25 Respiratory Rate 16 10/04/24 14:25 Blood Pressure 142/78 H 10/04/24 14:25 Pulse Oximetry 96 10/04/24 14:25 Oxygen Delivery Room Air 10/04/24 14:25 Temperature 97.6 F 10/04/24 14:25 Pulse Rate 66 10/04/24 18:13 Respiratory Rate 20 10/04/24 18:13 Blood Pressure 144/76 H 10/04/24 18:13 Pulse Oximetry 95 10/04/24 18:13 Oxygen Delivery Room Air 10/04/24 16:18 <Chiara Mars, PARTY HOST/HOSTESS - Last Filed: 10/04/24 15:42> Vital Signs Temperature 97.6 F 10/04/24 14:25 Pulse Rate 68 10/04/24 14:25 Respiratory Rate 16 10/04/24 14:25 Blood Pressure 142/78 H 10/04/24 14:25 Pulse Oximetry 96 10/04/24 14:25 Oxygen Delivery Room Air 10/04/24 14:25 Temperature 97.6 F 10/04/24 14:25 Pulse Rate 66 10/04/24 18:13 Respiratory Rate 20 10/04/24 18:13 Blood Pressure 144/76 H 10/04/24 18:13 Pulse Oximetry 95 10/04/24 18:13 Oxygen Delivery Room Air 10/04/24 16:18 <Melissa Jose III, DO - Last Filed: 10/04/24 18:36> Lab Data Result diagrams: 10/04/24 15:56 10/04/24 15:56 <Chiara Mars, PARTY HOST/HOSTESS - Last Filed: 10/04/24 15:42> Labs: Lab Results 10/04/24 10/04/24 Range/Units 15:56 17:58 WBC 11.4 H (4.5-10.0) K/mm3 RBC 4.27 (4.2-5.4) M/mm3 Hgb 11.6 L (12.0-15.0) g/dL Hct 37.0 (37.0-47.0) % MCV 86.7 (80-100) fl MCH 27.2 (26-34) pg MCHC 31.4 L (32-36) g/dl RDW 14.7 H (11.5-14.5) % Plt Count 284 (150-375) k/mm3 MPV 10.2 (7.4-10.4) fl Immature Gran % (Auto) 0.7 H (0-0.5) % Neut % (Auto) 65.4 (45.5-73.1) % Lymph % (Auto) 24.9 (18.3-44.2) % Mclean % (Auto) 7.6 (2.6-8.5) % Eos % (Auto) 1.0 (0-4.4) % Baso % (Auto) 0.4 (0.2-1.2) % Lymph # (Auto) 2.84 (0.9-3.2) K/mm3 Mclean # (Auto) 0.9 H (0.1-0.6) K/mm3 Eos # (Auto) 0.1 (0-0.3) K/mm3 Baso # (Auto) 0.0 (0.0-0.1) K/mm3 Abs Immat Gran (auto) 0.08 H (0.00-0.031) K/mm3 Absolute Neuts (auto) 7.5 H (1.3-6.7) K/mm3 Absolute Nucleated RBC 0.000 (0.0-0.012) K/mm3 Nucleated RBC % 0.0 (0.0-0.2) % PT 13.5 (11.1-14.7) Seconds INR 1.0 APTT 27.6 (22.3-36.8) Seconds Sodium 140 (137-145) mmol/L Potassium 4.5 (3.4-5.0) mmol/L Chloride 104 (98-107) mmol/L Carbon Dioxide 26 (22-30) mmol/L Anion Gap 10 (4-12) mmol/L BUN 19 H (7-17) mg/dL Creatinine 0.59 L (0.7-1.0) mg/dL Estim Creat Clear Calc 124 ml/min Estimated GFR > 60 (59 - ) Glucose 94 (65-110) mg/dL Calcium 9.1 (8.4-10.2) mg/dL Total Bilirubin 0.2 (0.2-1.3) mg/dL AST 34 (14-36) U/L ALT 23 (6-35) U/L Alkaline Phosphatase 149 H (38-126) U/L Troponin I < 0.012 < 0.012 (0.000-0.034) ng/mL Total Protein 8.0 (6.3-8.2) g/dL Albumin 3.9 (3.5-5.1) g/dL Lipase 108 (23-300) U/L <Chiara Mars, PARTY HOST/HOSTESS - Last Filed: 10/04/24 15:42> Lab Results 10/04/24 10/04/24 Range/Units 15:56 17:58 WBC 11.4 H (4.5-10.0) K/mm3 RBC 4.27 (4.2-5.4) M/mm3 Hgb 11.6 L (12.0-15.0) g/dL Hct 37.0 (37.0-47.0) % MCV 86.7 (80-100) fl MCH 27.2 (26-34) pg MCHC 31.4 L (32-36) g/dl RDW 14.7 H (11.5-14.5) % Plt Count 284 (150-375) k/mm3 MPV 10.2 (7.4-10.4) fl Immature Gran % (Auto) 0.7 H (0-0.5) % Neut % (Auto) 65.4 (45.5-73.1) % Lymph % (Auto) 24.9 (18.3-44.2) % Mclean % (Auto) 7.6 (2.6-8.5) % Eos % (Auto) 1.0 (0-4.4) % Baso % (Auto) 0.4 (0.2-1.2) % Lymph # (Auto) 2.84 (0.9-3.2) K/mm3 Mclean # (Auto) 0.9 H (0.1-0.6) K/mm3 Eos # (Auto) 0.1 (0-0.3) K/mm3 Baso # (Auto) 0.0 (0.0-0.1) K/mm3 Abs Immat Gran (auto) 0.08 H (0.00-0.031) K/mm3 Absolute Neuts (auto) 7.5 H (1.3-6.7) K/mm3 Absolute Nucleated RBC 0.000 (0.0-0.012) K/mm3 Nucleated RBC % 0.0 (0.0-0.2) % PT 13.5 (11.1-14.7) Seconds INR 1.0 APTT 27.6 (22.3-36.8) Seconds Sodium 140 (137-145) mmol/L Potassium 4.5 (3.4-5.0) mmol/L Chloride 104 (98-107) mmol/L Carbon Dioxide 26 (22-30) mmol/L Anion Gap 10 (4-12) mmol/L BUN 19 H (7-17) mg/dL Creatinine 0.59 L (0.7-1.0) mg/dL Estim Creat Clear Calc 124 ml/min Estimated GFR > 60 (59 - ) Glucose 94 (65-110) mg/dL Calcium 9.1 (8.4-10.2) mg/dL Total Bilirubin 0.2 (0.2-1.3) mg/dL AST 34 (14-36) U/L ALT 23 (6-35) U/L Alkaline Phosphatase 149 H (38-126) U/L Troponin I < 0.012 < 0.012 (0.000-0.034) ng/mL Total Protein 8.0 (6.3-8.2) g/dL Albumin 3.9 (3.5-5.1) g/dL Lipase 108 (23-300) U/L <Melissa Santana Jose III, DO - Last Filed: 10/04/24 18:36> Discharge Plan Discharge Clinical Impression: Atypical chest pain <Chiara Mars APRN - Last Filed: 10/04/24 15:42> Patient Disposition: Home <Chiara Mars APRN - Last Filed: 10/04/24 15:42> Condition: Stable <Chiara Mars APRN - Last Filed: 10/04/24 15:42> Instructions: Antibiotic Form, Chest Wall Pain (ED) <Chiara Mars, PARTY HOST/HOSTESS - Last Filed: 10/04/24 15:42> Patient Language: [place] <Chiara Cast September, - Last Filed: 10/04/24 15:42> Prescriptions: New naproxen [Naprosyn] 500 mg tablet 500 mg PO BID Qty: 20 0RF <Chiara Cast September, - Last Filed: 10/04/24 15:42> Follow-up/Referrals: Ayana,Chrystal Constantino MD [Non-Staff] - <Chiara Cast September, - Last Filed: 10/04/24 15:42> Quality HEART score for chest pain patients History: slightly suspicious <Melissa Max Jose III, DO - Last Filed: 10/04/24 18:36> ECG: normal <Melissa Max Jose III, DO - Last Filed: 10/04/24 18:36> Age: > 45 and < 65 years <Melissa Max Jose III, DO - Last Filed: 10/04/24 18:36> Risk factors: 1 or 2 risk factors <Melissa Max Jose III, DO - Last Filed: 10/04/24 18:36> Troponin: < or = to 1x normal limit <Melissa Max Jose III, DO - Last Filed: 10/04/24 18:36> Heart score: 2 <Melissa Max Jose III, DO - Last Filed: 10/04/24 18:36>
[2024-10-04 15:59] VITALS: O2SAT 95
[2024-10-04 16:05] LABS: Basophils Percent Auto 0.4 % (0.2-1.2); Eosinophils Absolute Auto 0.1 K/mm3 (0-0.3); Hemoglobin 11.6 g/dL (12.0-15.0); Immature Granulocyte Absolute 0.08 K/mm3 (0.00-0.031); Immature Granulocyte Percent A 0.7 % (0-0.5); Lymphocytes Absolute Auto 2.84 K/mm3 (0.9-3.2); Lymphocytes Percent Auto 24.9 % (18.3-44.2); Mean Corpuscular HGB Conc 31.4 g/dl (32-36); Mean Corpuscular Hemoglobin 27.2 pg (26-34); Mean Corpuscular Volume 86.7 fl (80-100); Mean Platelet Volume 10.2 fl (7.4-10.4); Monocytes Absolute Auto 0.9 K/mm3 (0.1-0.6); Monocytes Percent Auto 7.6 % (2.6-8.5); Neutrophils Absolute Auto 7.5 K/mm3 (1.3-6.7); Neutrophils Percent Auto 65.4 % (45.5-73.1); Platelet Count Result 284 k/mm3 (150-375); Red Blood Count 4.27 M/mm3 (4.2-5.4); Red Cell Distribution Width 14.7 % (11.5-14.5); White Blood Count 11.4 K/mm3 (4.5-10.0)
[2024-10-04 16:14] LABS: Alanine Aminotransferase 23 U/L (6-35); Albumin Level 3.9 g/dL (3.5-5.1); Alkaline Phosphatase 149 U/L (38-126); Anion Gap 10 mmol/L (4-12); Aspartate Amino Transferase 34 U/L (14-36); Bilirubin,Total 0.2 mg/dL (0.2-1.3); Blood Urea Nitrogen 19 mg/dL (7-17); Calcium 9.1 mg/dL (8.4-10.2); Carbon Dioxide 26 mmol/L (22-30); Chloride 104 mmol/L (98-107); Estimated CRCL calculation 124 ml/min; Estimated Glomerular Filt Rate > 60; Glucose 94 mg/dL (65-110); Lipase 108 U/L (23-300); Potassium 4.5 mmol/L (3.4-5.0); Sodium 140 mmol/L (137-145)
[2024-10-04 16:17] VITALS: PULSE 69
[2024-10-04 16:18] VITALS: BP 148/68; PULSE 71; RESP 18; O2SAT 96
[2024-10-04 16:19] LABS: Prothrombin Time 13.5 Seconds (11.1-14.7)
[2024-10-04 16:20] LABS: Partial Thromboplastin Time 27.6 Seconds (22.3-36.8)
[2024-10-04 16:26] LABS: Troponin I < 0.012 ng/mL (0.000-0.034)
--- OUTSIDE RECORDS SUMMARY | 2024-10-04 17:15 | XMS_ITS | Continuity of Care Document ---
Author Organization [facility], [employer]. Address [address] [place] [address] Phone Care Team Providers Care Manager Ems Name Role Phone Scoper Keenan SHAW Unavailable [...] Diagnoses Date Provider Providers Copied on Encounter [facility] [address] [place] [address], [id number], [place] tel:[phone] Central No Information Scoper Keenan. [address], [place], [id number], [place]. tel:[phone] Offic Cons New/estab Mod-hi 60 [facility] [address], [place], [id number], [place] tel:[phone] Central No Information Larry Casas. [address], [place], [id number], [place]. tel:[phone] Referring Provider: Rafy Pan OD, [address], [place], [address]. tel:[phone] Family History Family Member Type Diagnosis Age At Onset Mother Problem (finding) neuropathy Father Problem (finding) congestive heart failur e Grandfather (m) Problem (finding) malignant neoplasm o f lung Grandfather (m) Problem (finding) Parkinsons Grandmother (p) Problem (finding) Diabetes mellitus Payers Payer name Insurance type Covered libertarian ID Authoriza tion(s) No Information Social History [...]
--- OUTSIDE RECORDS SUMMARY | 2024-10-04 17:15 | XMS_ITS | Referral Summary ---
Author Organization [facility] Medical Office Building B Address [address] [place] [address] Care Team Providers Care Household Appliances Service Technician Name Role Phone Magdalene Canales MD Primary Care Provider [phone] Encounters Date Type Department Care Team Description 09/03/2024 11:00 AM CDT Office Visit [facility] Gastroenterology at [address] [place] [address] Kenton Barnett MD Constipation, unspecified [...] 37.2 C (98.9 F) 07/03/2024 11:46 AM FUEL QUALITY TECH Respiratory Rate 24 07/03/2024 11:4 6 AM FUEL QUALITY TECH Oxygen Saturation 94% 09/03/2024 11: 39 AM CDT Inhaled Oxygen Concentration - - Weight 132.1 kg (291 lb 3.2 oz) 025 11:39 AM CDT Height 165.1 cm (5' 5 ) 09/03/2024 11:3 9 AM CDT Body Mass Index 48.46 09/03/2024 11:39 AM CDT Plan of Treatment Not on file Insurance [facility] Care Teams Household Appliances Service Technician Relationship Specialty Start Date End Date Magdalene Canales MD [address] [place] [id number] PCP - General Internal Medicine 09/12/23
--- OUTSIDE RECORDS SUMMARY | 2024-10-04 17:15 | XMS_ITS | Continuity of Care Document ---
Author Organization [facility] Address [id number] [place] [address] Phone Care Team Providers Care Merchandiser Retail Representative Name Role Phone Nguyen SHAW, Jasmin Unavailable [...] Providers Copied on Encounter TEMITOPE, Guilherme [address], [place], [place], [id number] , tel:[phone] [facility] No Information 4 Nguyen Castellanos. [address], [place] [address], [place], [place], [address], [place]. tel:[phone] [facility], [address], [place], [place], [id number] , [place] tel:[phone] [facility] Periodic Limb Movement DisorderRespir atory Insufficiency 4 Nguyen Castellanos. [address], [place] [address], [place], [place], [address], [place]. tel:[phone] OFFICE/OUTPA TIENT VISIT, EST [facility], [address], [place], [place], [address] , [place] tel:[phone] [facility] Anxiety f/u (chief complaint) Fatigue / MalaiseAdjustm ent disorder with mixed anxiety and depressed moodSeizure / ConvulsionsIro n Metabolism Disorders Other 4 Nguyen Castellanos. [address], [place] [address], [place], [place], [id number], [place]. tel:[phone] Jasmin johnson.Referri ng Provider: Jasmin johnson, [address] [place] [address], [place], [address] . tel:[phone] OFFICE/OUTPA TIENT VISIT, EST [facility], [address], [place], [place], [address] , [place] tel:[phone] [facility] Chills (chief complaint) Adjustment disorder with mixed anxiety and depressed mood 4 Nguyen Castellanos. [address], [place] [address], [place], [place], [address], [place]. tel:[phone] Referring Provider: Jasmin johnson, [address] [place] [address], [place], [address] . tel:[phone] [facility], [address], [place], [place], [address] , [place] tel:[phone] [facility] Fatigue / Malaise 4 Nguyen Castellanos. [address], [place] [address], [place], [place], [address], [place]. tel:[phone] WELL EXAM, EST, AGE 40-64 [facility], [address], [place], [place], [address] , [place] [phone] [facility] preventive exam (chief complaint) Other examination of ears and hearingRoutine Medical ExamAdjustment disorder with mixed anxiety and depressed moodSeizure / ConvulsionsMen opausal or female climacteric statesFatigue / Malaise 4 Nguyen Castellanos. [address], [place] [address], [place], [place], [address], [place]. tel:[phone] Jasmin johnson.Referri sybil Provider: Jasmin johnson, [address] [place] [address], [place], [address] . tel:[phone] OFFICE/OUTPA TIENT VISIT, EST [facility], [address], [place], [place], [address] , [place] tel:[phone] [facility] depression (chief complaint) Fatigue / MalaiseMenopau natalie or female climacteric states 4 Nguyen Castellanos. [address] [place] [address], [place], [place], [address], [place]. tel:[phone] Jasmin johnson.Referri ng Provider: Jasmin johnson, [address] [place] [address], [place], [address] . tel:[phone] OFFICE/OUTPA TIENT VISIT, EST [facility], [address], [place], [place], [address] , [place] tel:[phone] [facility] Depression (chief complaint) Adjustment disorder with mixed anxiety and depressed moodOther specified menopausal and postmenopausal disorders 4 Nguyen Castellanos. [address], [address], [place], [place], [address], [place]. tel:[phone] Jasmin johnson. [facility], [address], [place], [place], [address] , [place] tel:[phone] [facility] No Information Aug- 3 Nguyen Castellanos. [address], [address], [place], [place], [address], [place]. tel:[phone] OFFICE/OUTPA TIENT VISIT, EST [facility], [address], [place], [place], [address] , [place] tel:[phone] [facility] sore under tongue (chief complaint) Cysts of oral soft tissues 3 Nguyen Castellanos. [address], [address], [place], [place], [address], [place]. tel:[phone] Jasmin johnson. OFFICE/OUTPA TIENT VISIT, EST [facility], [address], [place], [place], [address] , [place] tel:[phone] [facility] adjustment disorder with mixed anxiety and depression (chief complaint) Adjustment disorder with mixed anxiety and depressed moodOther specified menopausal and postmenopausal disorders 3 Nguyen Castellanos. [address], [address], [place], [place], [address], [place]. tel:[phone] Jasmin johnson. OFFICE/OUTPA TIENT VISIT, EST [facility], [address], [place], [place], [address] , [place] tel:[phone] [facility] sleep disturbances (chief complaint)hot flashes (chief complaint)exc essive pm sweating (chief complaint) Adjustment disorder with mixed anxiety and depressed moodInsomnia, Other Jul- 3 Nguyen Castellanos. [address], [place], [place], [address], [place]. tel:[phone] OFFICE/OUTPA TIENT VISIT, EST [facility], [address], [place], [place], [address] , [place] tel:[phone] [facility] depression (chief complaint) Adjustment disorder with mixed anxiety and depressed mood 3 Nguyen Castellanos. [address], [place] [address], [place], [place], [address], [place]. tel:[phone] WELL EXAM, EST, AGE 40-64 [facility], [address], [place], [place], [address] , [place] tel:[phone] [facility] preventive exam (chief complaint) Routine Medical ExamSeizure / ConvulsionsMaj or depressive affective disorder, single episode, severe degree, without mention of psychotic behaviorPanic disorder without agoraphobiaNee d for prophylactic vaccination with combined diphtheria-tet anus-pertussis (DTP) (DTaP) vaccineRoutine Medical Exam 3 Nguyen Castellanos. [address], [place] [address], [place], [place], [address], [place]. tel:[phone] [facility], [address], [place], [place], [address] , [place] tel:[phone] [facility] Routine Medical Exam 3 Nguyen Castellanos. [address], [place] [address], [place], [place], [address], [place]. tel:[phone] OFFICE/OUTPA TIENT VISIT, EST [facility], [address], [place], [place], [address] , [place] tel:[phone] [facility] check mole (chief complaint)UTI (chief complaint) Other seborrheic keratosisUrina ry frequency 1 Stacy Lainez. [address], [address], [place], [address], . tel:[phone] Referring Provider: Jasmin johnson, [address] [place] [address], [place], [address] . tel:[phone] WELL EXAM, EST, AGE 40-64 [facility], [address], [place], [place], [address] , [place] tel:[phone] [facility] physical exam (chief complaint) Seizure / ConvulsionsRou mayo Medical ExamSeizure / ConvulsionsPan ic disorder without agoraphobiaRou mayo Medical Exam 1 Nguyen Castellanos. [address], [address], [place], [place], [address], [place]. tel:[phone] [facility], [address], [place], [place], [address] , [place] tel:[phone] [facility] Routine Medical Exam 1 Nguyen Castellanos. [address], [address], [place], [place], [address], [place]. tel:[phone] [facility], [address], [place], [place], [address] , [place] tel:[phone] [facility] No Information 0 Nguyen Castellanos. [address], [address], [place], [place], [address], [place]. tel:[phone] OFFICE/OUTPA TIENT VISIT, EST [facility], [address], [place], [place], [address] , [place] tel:[phone] [facility] No Information 0 Nguyen Castellanos. [address], [address], [place], [place], [address], [place]. tel:[phone] [facility], [address], [place], [place], [address] , [place] tel:[phone] [facility] Major depressive affective disorder, single episode, severe degree, without mention of psychotic behaviorPanic disorder without agoraphobiaNar cissistic personality disorderMajor depressive affective disorder, single episode, severe degree, without mention of psychotic behavior 9 Giayah Castellanos. [address], [facility] [address], [place], [place], [address], [place]. tel:[phone] WELL EXAM, EST, AGE 40-64 [facility], [address], [place], [place], [address] , [place] tel:[phone] [facility] No Information 5-200 9 Gianvittorio Jasmin. [address], [facility] [address], [place], [place], [address], [place]. tel:[phone] [facility], [address], [place], [place], [address] , [place] tel:[phone] [facility] No Information 2 9 Gianvittorio Jasmin. [address], [facility] [address], [place], [place], [address], [place]. tel:[phone] OFFICE/OUTPA TIENT VISIT, EST [facility], [address], [place], [place], [address] , [place] tel:[phone] [facility] No Information 9 Gianvittorio Jasmin. [address], [place] [address], [place], [place], [address], [place]. tel:[phone] OFFICE/OUTPA TIENT VISIT, EST [facility], [address], [place], [place], [address] , [place] tel:[phone] [facility] No Information 0 9 Gianvittorio Jasmin. [address], [facility] [address], [place], [place], [address], [place]. tel:[phone] OFFICE/OUTPA TIENT VISIT, EST [facility], [address], [place], [place], [address] , [place] tel:[phone] [facility] No Information 3 0-200 8 Gianvittorio Jasmin. [address], [facility] [address], [place], [place], [address], [place]. tel:[phone] OFFICE/OUTPA TIENT VISIT, EST [facility], [address], [place], [place], [address] , [place] tel:[phone] [facility] No Information 8 Nino Hendricks. [facility], [address], [address], . tel:[phone] Referring Provider: Jorge A Faust, [address] [facility], [address]ITE [facility], [place], [address]. tel:[phone] OFFICE/OUTPA TIENT VISIT, EST [facility], [address], [place], [place], [address] , [place] tel:[phone] [facility] No Information 8 Nino Hendricks. [facility] [address] [facility], [address], [id number], [place]. tel:[phone] Referring Provider: Marguerite Morocho, [facility] [address] [facility], [address], [address]. tel:[phone] OFFICE/OUTPA TIENT VISIT, EST [facility], [address], [place], [place], [address] , [place] tel:[phone] [facility] No Information 8 Nino Hendricks. [facility] [facility], [address], [id number], [place]. tel:[phone] Referring Provider: Travis Faust, Row[address] [facility], [place], [address] . tel:[phone] OFFICE/OUTPA TIENT VISIT, EST [facility], [address], [place], [place], [address] , [place] tel:[phone] [facility] No Information 8 Nino Eladio. [facility], [address] [place] [address], [id number], [place]. tel:[phone] Referring Provider: Rowdy [address] [facility], [place], [address] . tel:[phone] OFFICE/OUTPA TIENT VISIT, EST [facility], [address], [place], [place], [address] , tel:[phone] [facility] No Information 8 Nino Hendricks. [facility] [address] [facility], [address] [place] [address], [id number], . tel:[phone] Referring Provider: Travis Faust, [address] [facility], [place], [address] . tel:[phone] OFFICE/OUTPA TIENT VISIT, EST [facility], [address], [place], [place], [address] , tel:[phone] [facility] No Information 8 Nino Hendricks. [facility] [address] [facility], [address], [id number], . tel:[phone] Referring Provider: Travis Faust, [facility] [address] [facility], [place], [address] . tel:[phone] OFFICE/OUTPA TIENT VISIT, EST [facility], [address], [place], [place], [address] , tel:[phone] [facility] No Information 8 Nino Hendricks. [address] [place] [address], [address], [id number], . tel:[phone] Referring Provider: Jorge A Faust, [facility], [address], [address]. tel:[phone] Family History Family Member Type Diagnosis Age At Onset Father Problem (finding) Paternal grandmother Problem (finding) Father Problem (finding) CHF (Cause Of ) grandfather Problem (finding) Paternal grandmother Problem (finding) Diabetes mellitus (Cause Of ) grandfather Problem (finding) Paternal grandmother Problem (finding) grandfather Problem (finding) Leukemia (Cause Of Deat h) Immunizations Vaccine Date Status Comments Tdap administered Source: New Imm unization Record Td (adult) administered Source: Source Unspecified Payers Payer name Insurance type Covered republican ID Sofía muller(s) [facility] [id number] Social History Type Description Quantity Date Captured [...] History Of Prese nt Illness Anxiety f/u Pt here for 2 wk anxiety/fatigue f/u. Pt doing much better and is sleeping better and even went to the gym last week. Pt did not take the Ativan and feels fine Anxiety f/u (comments) note; much improvedfatigue much less - has been able to go to the gym and exerciseremains home from work until 09/02 as plannedsleep study pending for 08/28 - Dr Bahman vidal remains good - no depressionsome insomnia, chronic Chills (comments) Feeling cold x weeks - seems to be a little worse last night- now off Effexor x 5 days and mood is ok- has sleep study pendingno syncope, chest pain, dizziness, palpitationsmood worse - remains very tired and has not been working Chills Onset: 12 hours ago. Additional information: Pt c/o ongoing chills throughout the night but pt states she is also sweating. Pt states it kept her awake all night. preventive exam Currently pregna nt: no. The [...] and Pt had PAP in Mar 2013 preventive exam (comments) She i s currently on short term leave from work due to falling asleep at workdespite reducing effexor she is still feeling the need to sleep all dayhas gained weight and not exercisedmood oktook a 37.5mg effexor last night - see notes- trying to wean off depression Additional infor mation: Pt c/o extreme fatigue and thinks it may be from Effexor medication. depression (comments) f/u fatigu eeffexor decr from 150mg to 75mg daily but fatigue remainsexercising when ablework remains busy- shift work- has been doing this x yrsnight sweats/hot flashes remain from menopausal sx Depression (comments) Better moo d with inc Effexor at 150mg daily - less hot flashes and night sweats- but more fatiguework okeating more sugar and exercising a lot less nowunsure if dosage is too high due to fatigue Depression Additional infor mation: Pt was rxed higher dosage of Effexor on 05/02/13; pt doing well w/ some mild fatigue. Functional Status Date Functional Assessmen t No Information Instructions Date Instruction Additional Infor danielitoion Depression education health maintenance report educat ion Assessments Type Assessment Date No Information Patient Care Teams Name Effective Dates (start - stop) Status Members No Information
--- OUTSIDE RECORDS SUMMARY | 2024-10-04 17:15 | XMS_ITS | Clinical Summary ---
Author Organization [facility] Address [address] [place] [address] Phone Care Team Providers Care Election Watcher Name Role Phone Magdalene Canales MD Primary [...] up. Behavioral Health On track(2024 10:27 AM G[facility]LL PREP COOK) Yes Sarina Durham LCSW Note: Goal/Objective: Decrease depressive symptoms. Anticipated Time Frame for Goal Completion: 6 months Goal Reviewed with: patient Readiness to change: Ready to change Department associated with goal: [facility] Steps to achieve goal: [...] Grief Behavioral Health On track(2024 10:27 AM GRILL PREP COOK) No Sarina Durham LCSW Note: Goal/Objective: Improve coping with grief and loss responses. Anticipated Time Frame for Goal Completion: 6 months Goal Reviewed with: patient Readiness to change: Ready to change Department associated with goal: [facility] Steps to achieve goal: [...] Procedure Name Priority Date/Time Associated Diagnosis Comments [facility] SCREENING BILATERAL DIGITAL W CAD W ARIES Routine 06/08/2024 12:00 PM GRILL PREP COOK Encounter for screening mammogram for malignant neoplasm of breast from Last 3 Months or Most Recently Relevant to Health Maintenance Results * [facility] SCREENING BILATERAL DIGITAL W CAD W ARIES (06/08/2024 12:00 PM [facility] PREP COOK) Anatomical Region Laterality Modality breast Bilateral Mammography 06/08/2024 12:2 9 PM [facility] Narrative 06/24/2024 5:16 PM [facility] PREP [facility]OOK - [facility] SCREENING BILATERAL DIGITAL W CAD [...] exam. Electronically signed by: Micky herrmann/penrad:06/24/2024 11:58:19 Classified Ad Clerk(s): NAVEED Reyna)(M), [facility] letter sent: Normal Exam Reading location: [place] Mammogram BI-RADS: Category 1: Negative Procedure Note Micky Prabhakar MD - 06/24/2024 - [facility] SCREENING BILATERAL DIGITAL W CAD W ARIES BILATERAL DIGITAL SCREENING MAMMOGRAM 3D/2D WITH CAD WITH MEDIOLATERAL OBLIQUE CRANIOCAUDAL: 06/08/2024 The study was acquired using digital technology and interpreted from soft copy. Current study was also evaluated with TengahD version 7.2. 2D digital mammographic views, as [...] signed by: Micky Prabhakar M.D. /penrad:06/24/2024 11:58:19 Classified Ad Clerk(s): NAVEED Reyna)(M), [facility] letter sent: Normal Exam Reading location: [place] Mammogram BI-RADS: Category 1: Negative Magdalene Canales MD IMG MAMMO ORDERABLES Final Re sult from Last 3 Months or Most Recently Relevant to Health Maintenance Insurance [place] Care Teams Election Watcher Relationship Specialty Start Date End Date Magdalene Canales MD [address] [place] [id number] PCP - General Internal Medicine 09/13/23
--- OUTSIDE RECORDS SUMMARY | 2024-10-04 17:15 | XMS_ITS | Clinical Summary ---
Author Organization [facility] Medical Office Building B Address [address] [place] [address] Care Team Providers Care Sweeper Operator Highways Name Role Phone Magdalene Canales MD Primary Care Provider [phone] Allergies Active Allergy Reactions Criticality Noted Date [...] Description 09/03/2024 11:00 AM CDT Office Visit [facility] Gastroenterology at [address] [place] [address] Kenton Barnett MD Constipation, unspecified [...] 37.2 C (98.9 F) 07/03/2024 11:46 AM CONCRETE CURER Respiratory Rate 24 07/03/2024 11:4 6 AM CONCRETE CURER Oxygen Saturation 94% 09/03/2024 11: 39 AM [...] patient's age to complete this topic Insurance [facility] Care Teams Sweeper Operator Highways Relationship Specialty Start Date End Date Magdalene Canales MD [address] [place] [address] PCP - General Internal Medicine 09/12/23
[2024-10-04] MEDS: KETOROLAC 15 MG/ML VIAL (*BKC) IV PUSH (17:25)
--- NOTE | 2024-10-04 17:59 | ECG_ITS ---
Test Date: 2024-10-04 18:02:05 Measurements Intervals [place] Rate: 67 P: 31 AK: 151 QRS: 33 QRSD: 89 T: 37 QT: 386 QTc: 409 Interpretive Statements SINUS RHYTHM NONSPECIFIC T-WAVE ABNORMALITY ABNORMAL ECG Compared to ECG 10/04/2024 13:46:26 T-wave abnormality no longer present Electronically Signed On 10-05-2024 08:02:54 CDT by Marcos Hernandez M.D.
[2024-10-04 18:13] VITALS: BP 144/76; PULSE 66; RESP 20; O2SAT 95
[2024-10-04 18:23] LABS: Troponin I < 0.012 ng/mL (0.000-0.034)
== END 2024-10-04 18:53 | disposition home or self-care (01) ==
PROVIDERS: Emergency Medicine; Emergency Provider Emergency Medicine
DX: R07.89 Other chest pain (principal)
CPT/HCPCS: 36415; 71046; 80053; 83690; 84484; 85025; 85610; 85730; 93005; 96374; 99284; J1885